=== PATIENT | female | born 1975 | race Caucasian/White ===

== ENCOUNTER → 2017-05-13 | Outpatient (CLI) | payer OTHER ==
[2017-05-13 07:36] LABS: BASO % 0.8 %; BASO ABS # 0.06 K/uL (0-0.2); COMPLETE YES; EOS % 1.9 %; HEMATOCRIT 38.4 % (37-47); IG% 0.4 %; LYMPH % 26.7 %; LYMPH ABS # 1.95 K/uL (1.2-3.4); MEAN CELL VOLUME 92.1 fL (80-100); MEAN CORPUSCULAR HEMOGLOBIN 31.2 pg (25-34); MEAN CORPUSCULAR HGB CONC 33.9 g/dl (32-36); MEAN PLATELET VOLUME 9.6 fL (7.4-10.4); MONO % 10.6 %; NEUT % 59.6 %; PLATELET COUNT 274 K/uL (130-400); RED BLOOD COUNT 4.17 M/uL (4.2-5.4); WHITE BLOOD COUNT 7.29 K/uL (4.8-10.8)
[2017-05-13 08:18] LABS: THYROID STIMULATING HORMONE 0.981 uIu/ml (0.300-4.500)
== END | disposition home or self-care (01) ==
LOC: C.LAB 06:51
PROVIDERS: ATTEND Optometrist
DX: Z00.00 Encounter for general adult medical examination without abnormal findings (principal); R79.89 Other specified abnormal findings of blood chemistry

== ENCOUNTER → 2017-10-27 | Outpatient (CLI) | payer OTHER ==
--- NOTE | 2017-10-28 15:08 | MAMMOGRAPHY REPORT ---
BILATERAL DIGITAL SCREENING MAMMOGRAM TOMOSYNTHESIS WITH CAD: 10/27/2017 CLINICAL HISTORY: Routine screening. Patient has no complaints. TECHNIQUE: Bilateral breast tomosynthesis in addition to standard 2D mammography was performed. Curre nt study was also evaluated with a Computer Aided Detection (CAD) system. COMPARISON: Comparison is made to exams dated: 08/06/2016 mammogram and 08/03/2015 mammogram - [facility]. BREAST COMPOSITION: The tissue of both breasts is heterogeneously dense, which may obscure small mas ses. FINDINGS: There is a possible area of architectural distortion in the 12:00 far posterior right [address], for which additional spot compression tomosynthesis views and possible ultrasound are recommended . Possible lobulated masses within each lateral and superior breast that could represent cysts, althoug h additional targeted ultrasound is recommended. There are diffuse bilateral benign-appearing punctate microcalcifications, most numerous in the right breast. No new suspicious clustered macrocalcifications are identified. IMPRESSION: ACR BI-RADS CATEGORY 0: INCOMPLETE EVALUATION: NEED ADDITIONAL IMAGING EVALUATION The possible area of architectural distortion in the 12:00 posterior right breast and possible bilate ral masses need additional imaging evaluation (30 minutes). The patient will be called to schedule an appointment. Approximately 10% of breast cancers are not detected with mammography. A negative mammographic report should not delay biopsy if a clinically suggestive mass is present. Jayshree Grove M.D. ay/:10/27/2017 15:46:54 Director Utilization Management: Concetta Shoemaker, [facility] letter sent: Addl Imaging 0 BI-RADS Code: ACR BI-RADS Category 0: Incomplete Evaluation: Need Additional Imaging Evaluation
== END | disposition home or self-care (01) ==
LOC: C.MAMM 14:50
PROVIDERS: ATTEND Internal Medicine
DX: Z12.31 Encounter for screening mammogram for malignant neoplasm of breast (principal)

== ENCOUNTER 2017-11-08 18:04 | Inpatient (IN) | payer OTHER ==
[~2017-11-08] VITALS: Ht 160 cm; Wt 75.3 kg
[2017-11-08] MEDS ORDERED: SODIUM CHLORIDE 0.9% 1000ML 1,000 ML IV STA ×3 (18:21→18:23)
[2017-11-08] MEDS ORDERED: KETOROLAC TROMETHAMINE 30 MG/ML VIAL IV STA ×2 (18:21→20:57)
[2017-11-08] MEDS ORDERED: ONDANSETRON INJ 2 MG/ML 2 ML VIAL IV STA (18:21)
[2017-11-08 18:46] LABS: HEMATOCRIT 36.3 % (37-47); HEMOGLOBIN 12.6 g/dL (12.0-16.0); MEAN CELL VOLUME 90.5 fL (80-100); MEAN CORPUSCULAR HEMOGLOBIN 31.4 pg (25-34); MEAN CORPUSCULAR HGB CONC 34.7 g/dl (32-36); MEAN PLATELET VOLUME 9.5 fL (7.4-10.4); PLATELET COUNT 232 K/uL (130-400); RED CELL DISTRIBUTION WIDTH CV 12.9 % (11.5-14.5); RED CELL DISTRIBUTION WIDTH SD 42.7 fL (36.4-46.3); WHITE BLOOD COUNT 15.25 K/uL (4.8-10.8)
[2017-11-08] MEDS ORDERED: [UNRECOGNIZED DRUG - OTHER] PO (18:56)
[2017-11-08] MEDS ORDERED: [UNRECOGNIZED DRUG - OTHER] PO (18:56)
[2017-11-08] MEDS ORDERED: [UNRECOGNIZED DRUG - OTHER] PO (18:56)
[2017-11-08] MEDS ORDERED: [UNRECOGNIZED DRUG - OTHER] PO (18:56)
[2017-11-08] MEDS ORDERED: [UNRECOGNIZED DRUG - OTHER] PO (18:56)
[2017-11-08] MEDS ORDERED: PHEN37.5 PO (18:56)
[2017-11-08] MEDS ORDERED: [UNRECOGNIZED DRUG - CODE] PO (18:56)
[2017-11-08] MEDS ORDERED: [UNRECOGNIZED DRUG - OTHER] PO ×2 (18:56)
--- NOTE | 2017-11-08 18:57 | DIAGNOSTIC IMAGING REPORT ---
CHEST ONE VIEW PORTABLE HISTORY: Generalized abdominal pain. COMPARISON: None. FINDINGS: The lungs are clear. Cardiac silhouette is normal in size. No pleural effusions. No pneumothorax. IMPRESSION: No acute process. Electronically signed by: Jason Cruz M.D. 11/08/2017 6:56 PM Dictated Date/Time: 11/08/2017 6:54 PM
[2017-11-08 18:58] LABS: ALBUMIN 3.7 gm/dl (3.4-5.0); CREATININE 0.85 mg/dl (0.60-1.20); POTASSIUM 3.5 mmol/L (3.5-5.1)
[2017-11-08 19:00] LABS: TOTAL PROTEIN 8.3 gm/dl (6.4-8.2)
--- NOTE | 2017-11-08 19:03 | EMERGENCY ROOM VISIT NOTE ---
History Report prepared by Maria Guadalupe: Na Orozco Under the Supervision of: Dr. Ryne Hong M.D. First contact with patient: 18:08 Chief Complaint: FLU LIKE SX Stated Complaint: AB PAIN History of Present Illness The patient is a 42 year old female who presents to the Emergency Room with complaints of constant abdominal pain beginning 1 week ago. The patient states that she has not felt well for a few weeks and 1 week ago she had nausea and vomiting at work after eating lunch. Since then she reports that she has been vomiting intermittently. She complains of RUQ pain that radiates into her back and hip, fever, chills, and shaking. The patient notes that she has been taking Tylenol and ibuprofen without relief of her symptoms. Pt denies LOC, headache, visual changes, neck pain, chest pain, cough, breathing difficulties, melena, hematochezia, urinary symptoms, numbness, weakness, lymphadenopathy, rash, leg pain, leg swelling, or other complaints. She rates her pain as a 6/10 in severity. Source of History: patient Onset: 1 week ago Position: abdomen (RUQ) Symptom Intensity: 6/10 Timing: constant Associated Symptoms: + fevers, + chills, + nausea, + vomiting, + back pain Review of Systems See HPI for pertinent positives and negatives. A total of ten systems were reviewed and were otherwise negative. Past Medical & Surgical Medical Problems: (1) No chronic problems Surgical Problems: (1) H/O laparoscopy Family History No pertinent family history stated. Social History Smoking Status: Former Smoker Marital Status: Housing Status: lives with family Occupation Status: employed Current/Historical Medications Scheduled Nutritional Supplements (Nutrament), 1 DOSE PO BID Phentermine Hcl (Phentermine Hcl), 37.5 MG PO DAILY [Adiprobiotic], 1 DOSE PO DAILY [Cellvit], 1 DOSE PO DAILY [Chrotrin], 1 DOSE PO DAILY [Enzonent], 1 DOSE PO DAILY [Lipotropic], 1 DOSE PO DAILY [Phenamine], 2 TAB PO QAM [Phenamine], 1 TAB PO QPM Allergies Coded Allergies: Oxytetracycline (Verified Allergy, Unknown, HAPPENED A CHILD-THINKS ITCHY RASH, 11/08/17) Polymyxin B (Verified Allergy, Unknown, HAPPENED A CHILD-THINKS ITCHY RASH, 11/08/17) Sulfa Antibiotics (Verified Allergy, Unknown, UNKNOWN, 11/08/17) Physical Exam Vital Signs Date Time Temp Pulse Resp B/P (MAP) Pulse Ox O2 Delivery O2 Flow Rate FiO2 11/08/17 22:30 106 11/08/17 21:15 38.6 113 18 113/72 93 Room Air 11/08/17 19:23 39.2 112 18 120/70 95 Room Air 11/08/17 18:39 115 11/08/17 18:06 38.5 126 18 132/79 99 Room Air Physical Exam GENERAL: Awake, alert, ill-appearing, in no distress HENT: Normocephalic, atraumatic. Oropharynx unremarkable. EYES: Normal conjunctiva. Sclera non-icteric. NECK: Supple. No nuchal rigidity. FROM. No JVD. RESPIRATORY: Clear to auscultation. CARDIAC: Tachycardic rate, normal rhythm. Extremities warm and well perfused. Pulses equal. ABDOMEN: Soft, non-distended. RUQ tenderness and guarding. No rebound. No masses. RECTAL: Deferred. MUSCULOSKELETAL: Chest examination reveals no tenderness. The back is symmetrical on inspection without obvious abnormality. There is no CVA tenderness to palpation. No joint edema. LOWER EXTREMITIES: Calves are equal size bilaterally and non-tender. No edema. No discoloration. NEURO: Normal sensorium. No sensory or motor deficits noted. SKIN: No rash or jaundice noted. Medical Decision & Procedures ER Provider Diagnostic Interpretation: Radiology results as stated below per my review and radiologist interpretation: CHEST ONE VIEW PORTABLE FINDINGS: The lungs are clear. Cardiac silhouette is normal in size. No pleural effusions. No pneumothorax. IMPRESSION: No acute process. Electronically signed by: Jason Cruz M.D. 11/08/2017 6:56 PM Dictated Date/Time: 11/08/2017 6:54 PM ABDOMINAL ULTRASOUND, RIGHT UPPER QUADRANT FINDINGS: Pancreas: The pancreatic tail is obscured by overlying bowel gas. The remaining portions of the pancreas are within normal limits. Liver: 15 cm in length. A 1.1 cm hyperechoic focus within the right hepatic lobe. This favors a hemangioma. Gallbladder: No gallbladder wall thickening. No gallstones. CBD: 5 mm. Right kidney: No hydronephrosis. IMPRESSION: 1. Normal gallbladder. No gallstones. 2. A 1.1 cm hyperechoic lesion within the right hepatic lobe which likely represents a hemangioma. Electronically signed by: Jason Cruz M.D. 11/08/2017 7:20 PM Dictated Date/Time: 11/08/2017 7:18 PM [address]OM[address] AND PELVIS CT WITH IV CONTRAST FINDINGS: Mild dependent changes seen within the lung bases posteriorly. No pneumoperitoneum. No pneumatosis. No fractures within the visualized osseous structures. A 1 cm hypodense lesion within the right hepatic lobe. This corresponds to the ultrasound focus and likely represents a hemangioma. The gallbladder, spleen, adrenal glands, pancreas, and left kidney are unremarkable. No hydronephrosis. Right perinephric fat stranding with multifocal areas of heterogeneous perfusion of the right kidney. There is also urothelial thickening within the right renal pelvis and right ureter. There is bladder wall thickening. No renal abscess identified at this time. Dominant focus of heterogeneous perfusion within the interpolar region of the right kidney measures 2.4 cm. The uterus and bilateral adnexa are unremarkable. Trace pelvic free fluid. A few colonic diverticula. No bowel wall thickening or obstruction. Normal appendix. IMPRESSION: 1. Right perinephric fat stranding with multifocal areas of heterogeneous perfusion of the right kidney. There is also urothelial thickening within the right renal pelvis and right ureter. Findings are consistent with a right-sided pyelonephritis. 2. There is also bladder wall thickening consistent with a cystitis. 3. No hydronephrosis. 4. Trace pelvic free fluid. This may be physiologic. Electronically signed by: Jason Cruz M.D. 11/08/2017 7:57 PM Dictated Date/Time: 11/08/2017 7:51 PM Laboratory Results 11/08/17 18:15 Red Blood Count 4.01, Mean Corpuscular Volume 90.5, Mean Corpuscular Hemoglobin 31.4, Mean Corpuscular Hemoglobin Concent 34.7, Mean Platelet Volume 9.5, Neutrophils (%) (Auto) 79.7, Lymphocytes (%) (Auto) 9.6, Monocytes (%) (Auto) 10.0, Eosinophils (%) (Auto) 0.2, Basophils (%) (Auto) 0.2, Neutrophils # (Auto ) 12.16, Lymphocytes # (Auto) 1.46, Monocytes # (Auto) 1.52, Eosinophils # (Auto ) 0.03, Basophils # (Auto) 0.03 11/08/17 18:15 Test 11/08/17 18:15 11/08/17 18:34 11/08/17 19:13 White Blood Count 15.25 K/uL (4.8-10.8) Red Blood Count 4.01 M/uL (4.2-5.4) Hemoglobin 12.6 g/dL (12.0-16.0) Hematocrit 36.3 % (37-47) Mean Corpuscular Volume 90.5 fL (80-100) Mean Corpuscular Hemoglobin 31.4 pg (25-34) Mean Corpuscular Hemoglobin Concent 34.7 g/dl (32-36) Platelet Count 232 K/uL (130-400) Mean Platelet Volume 9.5 fL (7.4-10.4) Neutrophils (%) (Auto) 79.7 % Lymphocytes (%) (Auto) 9.6 % Monocytes (%) (Auto) 10.0 % Eosinophils (%) (Auto) 0.2 % Basophils (%) (Auto) 0.2 % Neutrophils # (Auto) 12.16 K/uL (1.4-6.5) Lymphocytes # (Auto) 1.46 K/uL (1.2-3.4) Monocytes # (Auto) 1.52 K/uL (0.11-0.59) Eosinophils # (Auto) 0.03 K/uL (0-0.5) Basophils # (Auto) 0.03 K/uL (0-0.2) RDW Standard Deviation 42.7 fL (36.4-46.3) RDW Coefficient of Variation 12.9 % (11.5-14.5) Immature Granulocyte % (Auto) 0.3 % Immature Granulocyte # (Auto) 0.05 K/uL (0.00-0.02) Red Blood Cell Morphology Unremarkable Anion Gap 9.0 mmol/L (3-11) Est Creatinine Clear Calc Drug Dose 81.4 ml/min Estimated GFR () 96.6 Estimated GFR (Non- 83.3 BUN/Creatinine Ratio 13.2 (10-20) Calcium Level 9.0 mg/dl (8.5-10.1) Total Bilirubin 0.8 mg/dl (0.2-1) Direct Bilirubin 0.1 mg/dl (0-0.2) Aspartate Amino Transf (AST/SGOT) 39 U/L (15-37) Alanine Aminotransferase (ALT/SGPT) 56 U/L (12-78) Alkaline Phosphatase 69 U/L (45-117) Total Protein 8.3 gm/dl (6.4-8.2) Albumin 3.7 gm/dl (3.4-5.0) Lipase 128 U/L (73-393) Human Chorionic Gonadotropin, Qual NEG (NEG) Bedside Lactic Acid Venous 0.92 mmol/L (0.90-1.70) Urine Color YELLOW Urine Appearance CLOUDY (CLEAR) Urine pH 5.0 (4.5-7.5) Urine Specific Mchenry 1.023 (1.000-1.030) Urine Protein 1+ (NEG) Urine Glucose (UA) NEG (NEG) Urine Ketones 2+ (NEG) Urine Occult Blood 2+ (NEG) Urine Nitrite POS (NEG) Urine Bilirubin NEG (NEG) Urine Urobilinogen NEG (NEG) Urine Leukocyte Esterase SMALL (NEG) Urine WBC (Auto) >30 /hpf (0-5) Urine RBC (Auto) 5-10 /hpf (0-4) Urine Hyaline Casts (Auto) 1-5 /lpf (0-5) Urine Epithelial Cells (Auto) 10-20 /lpf (0-5) Urine Bacteria (Auto) 4+ (NEG) Urine Pathogenic Casts /lpf (0) Laboratory results reviewed by me Medications Administered Medications (Trade) Dose Ordered Sig/Luis Alberto Route Start Time Stop Time Status Last Admin Dose Admin Sodium Chloride 1,000 ml @ 125 mls/hr Q8H STAT IV 11/08/17 18:21 11/09/17 00:27 DC 11/08/17 18:32 125 MLS/HR Sodium Chloride 1,000 ml @ 999 mls/hr Q1H1M STAT IV 11/08/17 18:21 11/08/17 19:21 DC 11/08/17 18:21 999 MLS/HR Ondansetron HCl (Zofran Inj) 4 mg NOW STAT IV 11/08/17 18:21 11/08/17 18:24 DC 11/08/17 18:33 4 MG Ketorolac Tromethamine (Toradol Inj) 10 mg NOW STAT IV 1/28/18 18:21 11/08/17 18:24 DC 11/08/17 18:32 10 MG Sodium Chloride 1,000 ml @ 999 mls/hr Q1H1M STAT IV 11/08/17 18:23 11/08/17 19:23 DC 11/08/17 18:23 999 MLS/HR Ceftriaxone Sodium (Rocephin Inj) 1 gm NOW STAT IV 11/08/17 19:53 11/08/17 19:54 DC 11/08/17 19:59 1 GM Daptomycin 500 mg/ Sodium Chloride 60 ml @ 100 mls/hr NOW STAT IV 11/08/17 20:34 11/08/17 21:09 DC 11/08/17 20:34 100 MLS/HR Ketorolac Tromethamine (Toradol Inj) 10 mg NOW STAT IV 11/08/17 20:57 11/08/17 20:58 DC 11/08/17 21:11 10 MG Ondansetron HCl (Zofran Inj) 4 mg Q6H PRN IV 11/08/17 22:45 12/08/17 22:44 11/09/17 02:30 4 MG Morphine Sulfate (MoRPHine SULFATE INJ) 2 mg Q4H PRN IV 11/08/17 22:45 11/22/17 22:44 11/09/17 00:36 2 MG ED Course 1807: The patient was evaluated in room B12. A complete history and physical exam was performed. I performed a bedside ultrasound. 1820: Toradol Inj 10mg IV, Zofran Inj 4mg IV, Sodium Chloride 1000 ml @ 999 mls/ hr IV, Sodium Chloride 1000 ml @ 125 mls/hr IV. 1822: Sodium Chloride 1000 ml @ 999 mls/hr IV. 1921: I reevaluated and updated the patient. Her urine dip is concerning for infection and she is feeling better. 1952: Rocephin Inj 1gm IV. 1957: I reevaluated and updated the patient. 2033: Daptomycin 500mg/Sodium Chloride 60ml @ 100mls/hr IV. 2033: Discussed the patient's case with Dr. Gaviria. The patient will be evaluated for further treatment and disposition. 2056: Toradol Inj 10mg IV. 2104: Upon reexamination, the patient was doing well. I discussed the test results and treatment plan with her. The patient will be evaluated for further management. Medical Decision Prior records/ancillary studies reviewed. Triage Nursing notes reviewed and agree them. Additional history obtained from her . The patient's history was concerning for right upper quadrant abdominal pain. Differential diagnosis: Etiologies such as biliary pathology, UTI, appendicitis, diverticulitis, PUD, pancreatitis, obstruction, mesenteric ischemia, aortic pathology, infections, inflammatory bowel disease, renal colic, as well as others were entertained. Physical examination findings: As above. Guarding in the right upper quadrant. Febrile. ER treatment provided: IV Toradol 10 mg x2 IV normal saline bolus 2 L then 125 mL an hour. IV Zofran On reassessment the patient felt better. IV daptomycin IV Acetadote Diagnostics interpreted by me: The labs revealed a moderate leukocytosis on CBC of 15,000. Chemical panel unremarkable. LFTs rather unremarkable except for subtle elevation of AST. Urinalysis concerning for infection. Imaging studies: X-ray and ultrasound as above. CT scan concerning for pyelonephritis on the right. Consultation: A consultation was placed with the hospitalist,Dr. Fahad Gaviria. The case was discussed and diagnostics were reviewed. The patient was evaluated in the ER for further treatment. After discussion there was concerns about the patient taking a significant amount of Tylenol, slightly more than the recommended maximum over the last 3-4 days. We did consult with poison control and Acetadote was recommended. Medication Reconcilliation Current Medication List: was personally reviewed by me Blood Pressure Screening Patient's blood pressure: Elevated blood pressure Blood pressure disposition: Elevated BP felt to be situational Consults Time Called: 2029 Consulting Physician: Dr. Gaviria - [facility] Returned Call: 2033 Discussed the patient's case with Dr. Gaviria. The patient will be evaluated for further treatment and disposition. Impression Primary Impression: Pyelonephritis Scribe Attestation The scribe's documentation has been prepared under my direction and personally reviewed by me in its entirety. I confirm that the note above accurately reflects all work, treatment, procedures, and medical decision making performed by me. Departure Information Dispostion Being Evaluated By Hospitalist Referrals Nixon Caceres M.D. (PCP) Patient Instructions My [facility]
[2017-11-08 19:06] LABS: BASO % 0.2 %; BASO ABS # 0.03 K/uL (0-0.2); EOS % 0.2 %; EOS ABS # 0.03 K/uL (0-0.5); IG# 0.05 K/uL (0.00-0.02); LYMPH % 9.6 %; LYMPH ABS # 1.46 K/uL (1.2-3.4); MONO ABS # 1.52 K/uL (0.11-0.59); NEUT % 79.7 %; NEUT ABS # 12.16 K/uL (1.4-6.5)
--- NOTE | 2017-11-08 19:21 | DIAGNOSTIC IMAGING REPORT ---
ABDOMINAL ULTRASOUND, RIGHT UPPER QUADRANT HISTORY: fever, right upper quadrant pain, vomiting. COMPARISON: None. FINDINGS: Pancreas: The pancreatic tail is obscured by overlying bowel gas. The remaining portions of the pancreas are within normal limits. Liver: 15 cm in length. A 1.1 cm hyperechoic focus within the right hepatic lobe. This favors a hemangioma. Gallbladder: No gallbladder wall thickening. No gallstones. CBD: 5 mm. Right kidney: No hydronephrosis. IMPRESSION: 1. Normal gallbladder. No gallstones. 2. A 1.1 cm hyperechoic lesion within the right hepatic lobe which likely represents a hemangioma. Electronically signed by: Jason Cruz M.D. 11/08/2017 7:20 PM Dictated Date/Time: 11/08/2017 7:18 PM
[2017-11-08] MEDS ORDERED: OPTIRAY 320 IV PRN (19:45)
[2017-11-08] MEDS ORDERED: CEFTRIAXONE SOD INJ 1 GM ADDVIAL IV STA (19:53)
--- NOTE | 2017-11-08 19:58 | DIAGNOSTIC IMAGING REPORT ---
ABDOMEN AND PELVIS CT WITH IV CONTRAST CT DOSE: 459.46 mGy.cm HISTORY: Right upper quadrant abdominal pain. Fever. Abnormal urinalysis. TECHNIQUE: Multiaxial CT images of the abdomen and pelvis were performed following the use of intravenous contrast. A dose lowering technique was utilized adhering to the principles of ALARA. COMPARISON STUDY: Abdominal ultrasound 11/08/2017. FINDINGS: Mild dependent changes seen within the lung bases posteriorly. No pneumoperitoneum. No pneumatosis. No fractures within the visualized osseous structures. A 1 cm hypodense lesion within the right hepatic lobe. This corresponds to the ultrasound focus and likely represents a hemangioma. The gallbladder, spleen, adrenal glands, pancreas, and left kidney are unremarkable. No hydronephrosis. Right perinephric fat stranding with multifocal areas of heterogeneous perfusion of the right kidney. There is also urothelial thickening within the right renal pelvis and right ureter. There is bladder wall thickening. No renal abscess identified at this time. Dominant focus of heterogeneous perfusion within the interpolar region of the right kidney measures 2.4 cm. The uterus and bilateral adnexa are unremarkable. Trace pelvic free fluid. A few colonic diverticula. No bowel wall thickening or obstruction. Normal appendix. IMPRESSION: 1. Right perinephric fat stranding with multifocal areas of heterogeneous perfusion of the right kidney. There is also urothelial thickening within the right renal pelvis and right ureter. Findings are consistent with a right-sided pyelonephritis. 2. There is also bladder wall thickening consistent with a cystitis. 3. No hydronephrosis. 4. Trace pelvic free fluid. This may be physiologic. Electronically signed by: Jason Cruz M.D. 11/08/2017 7:57 PM Dictated Date/Time: 11/08/2017 7:51 PM
[2017-11-08] MEDS ORDERED: DAPTOmycin IV 500 MG in SODIUM CHLORIDE 0.9% 50ML 50 ML IV STA (20:34)
--- NOTE | 2017-11-08 22:30 | History and Physical ---
History & Physical Date & Time of Service: Nov 08, 2017 at 22:29 Chief Complaint: Ab Pain Primary Care Physician: Nixon Caceres M.D. History of Present Illness Source: patient, family, hospital records 42 year old female with no past medical history presents to ED with fever, RUQ, R flank pain. Symptoms commenced 4 days ago. RUQ pain described as sharp with radiation around the side to the back and down the right flank. Described as a burning and aching. Pain improved when laying on it and worsened immediately after PO intake and pressure felt when voiding. Otherwise denies UTI symptoms. Associated with fevers and chills, with Tmax 101.5 today at home. Had an episode of emesis last week, but none since. Has persistent nausea. Denies changes in bowel habits. Pain managed with Tylenol 1g q4h - patient was taking 6g daily for last 4 days, and Motrin 600mg q6h respectively. However, irrespective of this, pain worsened and became more persistent today. Previous hx of pyelo 25 years ago during . But no UTI history. She otherwise denies headaches, CP, palpitations, dyspnea, lower extremity swelling or rashes. ROS is unremarkable except as noted above. In ED patient was given IVF, ceftriaxone and daptomycin, Zofran for nausea and Toradol for pain. N-acetylcysteine was started for Tylenol OD particularly in view of abdominal symptoms. Past Medical/Surgical History Medical Problems: None Surgical Problems: H/O exploratory laparoscopy for infertility Family History Noncontributory Social History Smoking Status: Former Smoker (Quit 10 years ago, 15 pack year history.) Smokeless Tobacco Use: No Alcohol Use: occasionally Drug Use: none Marital Status: Occupational Status: employed Immunizations History of Influenza Vaccine: No History of Tetanus Vaccine?: No History of Pneumococcal: No History of Hepatitis B Vaccine: No Multi-Drug Resistant Organisms History of MDRO: No Allergies Coded Allergies: Oxytetracycline (Verified Allergy, Unknown, HAPPENED A CHILD-THINKS ITCHY RASH, 11/08/17) Polymyxin B (Verified Allergy, Unknown, HAPPENED A CHILD-THINKS ITCHY RASH, 11/08/17) Sulfa Antibiotics (Verified Allergy, Unknown, UNKNOWN, 11/08/17) Home Medications Scheduled Nutritional Supplements (Nutrament), 1 DOSE PO BID Phentermine Hcl (Phentermine Hcl), 37.5 MG PO DAILY [Adiprobiotic], 1 DOSE PO DAILY [Cellvit], 1 DOSE PO DAILY [Chrotrin], 1 DOSE PO DAILY [Enzonent], 1 DOSE PO DAILY [Lipotropic], 1 DOSE PO DAILY [Phenamine], 2 TAB PO QAM [Phenamine], 1 TAB PO QPM Physical Exam Vital Signs Date Time Temp Pulse Resp B/P (MAP) Pulse Ox O2 Delivery O2 Flow Rate FiO2 11/08/17 21:15 38.6 113 18 113/72 93 Room Air 11/08/17 19:23 39.2 112 18 120/70 95 Room Air 11/08/17 18:39 115 11/08/17 18:06 38.5 126 18 132/79 99 Room Air General Appearance: WD/WN, + mild distress Head: normocephalic, atraumatic Eyes: normal inspection ENT: hearing grossly normal, pharynx normal Neck: supple, no adenopathy Respiratory/Chest: normal breath sounds, no respiratory distress, no accessory muscle use Cardiovascular: regular rate, rhythm, no edema, normal peripheral pulses Abdomen/GI: normal bowel sounds, soft, + tenderness (RUQ. Kilpatrick's negative.) Back: normal inspection, + right CVA tenderness Neurologic/Psych: alert, normal mood/affect, oriented x 3 Skin: normal color, warm/dry, no rash Diagnostics Laboratory Results Results Past 24 Hours Test 11/08/17 18:15 11/08/17 18:34 11/08/17 19:13 Range/Units White Blood Count 15.25 4.8-10.8 K/uL Red Blood Count 4.01 4.2-5.4 M/uL Hemoglobin 12.6 12.0-16.0 g/dL Hematocrit 36.3 37-47 % Mean Corpuscular Volume 90.5 80-100 fL Mean Corpuscular Hemoglobin 31.4 25-34 pg Mean Corpuscular Hemoglobin Concent 34.7 32-36 g/dl Platelet Count 232 130-400 K/uL Mean Platelet Volume 9.5 7.4-10.4 fL Neutrophils (%) (Auto) 79.7 % Lymphocytes (%) (Auto) 9.6 % Monocytes (%) (Auto) 10.0 % Eosinophils (%) (Auto) 0.2 % Basophils (%) (Auto) 0.2 % Neutrophils # (Auto) 12.16 1.4-6.5 K/uL Lymphocytes # (Auto) 1.46 1.2-3.4 K/uL Monocytes # (Auto) 1.52 0.11-0.59 K/uL Eosinophils # (Auto) 0.03 0-0.5 K/uL Basophils # (Auto) 0.03 0-0.2 K/uL RDW Standard Deviation 42.7 36.4-46.3 fL RDW Coefficient of Variation 12.9 11.5-14.5 % Immature Granulocyte % (Auto) 0.3 % Immature Granulocyte # (Auto) 0.05 0.00-0.02 K/uL Red Blood Cell Morphology Unremarkable Sodium Level 136 136-145 mmol/L Potassium Level 3.5 3.5-5.1 mmol/L Chloride Level 103 98-107 mmol/L Carbon Dioxide Level 24 21-32 mmol/L Anion Gap 9.0 3-11 mmol/L Blood Urea Nitrogen 11 7-18 mg/dl Creatinine 0.85 0.60-1.20 mg/dl Est Creatinine Clear Calc Drug Dose 81.4 ml/min Estimated GFR () 96.6 Estimated GFR (Non- 83.3 BUN/Creatinine Ratio 13.2 10-20 Random Glucose 96 70-99 mg/dl Calcium Level 9.0 8.5-10.1 mg/dl Total Bilirubin 0.8 0.2-1 mg/dl Direct Bilirubin 0.1 0-0.2 mg/dl Aspartate Amino Transf (AST/SGOT) 39 15-37 U/L Alanine Aminotransferase (ALT/SGPT) 56 12-78 U/L Alkaline Phosphatase 69 45-117 U/L Total Protein 8.3 6.4-8.2 gm/dl Albumin 3.7 3.4-5.0 gm/dl Lipase 128 73-393 U/L Human Chorionic Gonadotropin, Qual NEG NEG Bedside Lactic Acid Venous 0.92 0.90-1.70 mmol/L Urine Color YELLOW Urine Appearance CLOUDY CLEAR Urine pH 5.0 4.5-7.5 Urine Specific [place] 1.023 1.000-1.030 Urine Protein 1+ NEG Urine Glucose (UA) NEG NEG Urine Ketones 2+ NEG Urine Occult Blood 2+ NEG Urine Nitrite POS NEG Urine Bilirubin NEG NEG Urine Urobilinogen NEG NEG Urine Leukocyte Esterase SMALL NEG Urine WBC (Auto) >30 0-5 /hpf Urine RBC (Auto) 5-10 0-4 /hpf Urine Hyaline Casts (Auto) 1-5 0-5 /lpf Urine Epithelial Cells (Auto) 10-20 0-5 /lpf Urine Bacteria (Auto) 4+ NEG Urine Pathogenic Casts 0 /lpf Microbiology Results 11/08/17 Blood Culture, Received Pending 11/08/17 Blood Culture, Received Pending 11/08/17 Urine Culture, Received Pending Diagnostic Radiology CHEST ONE VIEW PORTABLE HISTORY: Generalized abdominal pain. COMPARISON: None. FINDINGS: The lungs are clear. Cardiac silhouette is normal in size. No pleural effusions. No pneumothorax. IMPRESSION: No acute process. ABDOMINAL ULTRASOUND, RIGHT UPPER QUADRANT HISTORY: fever, right upper quadrant pain, vomiting. COMPARISON: None. FINDINGS: Pancreas: The pancreatic tail is obscured by overlying bowel gas. The remaining portions of the pancreas are within normal limits. Liver: 15 cm in length. A 1.1 cm hyperechoic focus within the right hepatic lobe. This favors a hemangioma. Gallbladder: No gallbladder wall thickening. No gallstones. CBD: 5 mm. Right kidney: No hydronephrosis. IMPRESSION: 1. Normal gallbladder. No gallstones. 2. A 1.1 cm hyperechoic lesion within the right hepatic lobe which likely represents a hemangioma. ABDOMEN AND PELVIS CT WITH IV CONTRAST CT DOSE: 459.46 mGy.cm HISTORY: Right upper quadrant abdominal pain. Fever. Abnormal urinalysis. TECHNIQUE: Multiaxial CT images of the abdomen and pelvis were performed following the use of intravenous contrast. A dose lowering technique was utilized adhering to the principles of ALARA. COMPARISON STUDY: Abdominal ultrasound 11/08/2017. FINDINGS: Mild dependent changes seen within the lung bases posteriorly. No pneumoperitoneum. No pneumatosis. No fractures within the visualized osseous structures. A 1 cm hypodense lesion within the right hepatic lobe. This corresponds to the ultrasound focus and likely represents a hemangioma. The gallbladder, spleen, adrenal glands, pancreas, and left kidney are unremarkable. No hydronephrosis. Right perinephric fat stranding with multifocal areas of heterogeneous perfusion of the right kidney. There is also urothelial thickening within the right renal pelvis and right ureter. There is bladder wall thickening. No renal abscess identified at this time. Dominant focus of heterogeneous perfusion within the interpolar region of the right kidney measures 2.4 cm. The uterus and bilateral adnexa are unremarkable. Trace pelvic free fluid. A few colonic diverticula. No bowel wall thickening or obstruction. Normal appendix. IMPRESSION: 1. Right perinephric fat stranding with multifocal areas of heterogeneous perfusion of the right kidney. There is also urothelial thickening within the right renal pelvis and right ureter. Findings are consistent with a right-sided pyelonephritis. 2. There is also bladder wall thickening consistent with a cystitis. 3. No hydronephrosis. 4. Trace pelvic free fluid. This may be physiologic. Impression Assessment and Plan 42 year old female with no past medical history presents to ED with fever, RUQ, R flank pain, admitted for pyelonephritis Sepsis secondary to pyelonephritis - IV abx: vancomycin and imipenem-cilastatin. - IVF NSS @ 125cc/hr - Zofran PRN nausea - Tramadol and morphine PRN pain - avoid Tylenol and NSAID. - If pain symptoms do not improve with management for pyelo, would consider further GB assessment. - Trend CBC and BMP Tylenol overdose - took ~2400g in 4 days. Poison control recommends management given abdo symptoms - Ordered Tylenol level - N-acetylcysteine as per protocol - Trend LFTs VTE PPx - SCD ADDENDUM: Vancomycin infusion at 200cc/hr - 1 hour into infusion, patient developed swelling and redness on face, questionable bumps/welts on chin, severe bilateral ear swelling. Vitals WNL some hypotension, not worse than at admission. No signs of anaphylaxis on P/E. IV Benadryl prescribed and vancomycin switched to daptomycin. Attending addendum: I have physically seen this patient, have supervised the medical residents activities, and agree with the H&P unless as otherwise noted. Assessment and Plan: Sepsis Secondary to UTI/pyelonephritis-- Patient had been placed on vancomycin IV and Primaxin IV however, developed what appeared to be a true allergic reaction as opposed to red man syndrome to vancomycin. The vancomycin was changed to daptomycin IV. Follow urine culture and sensitivity NSS at 125 ML's per hour Inadvertent acetaminophen overdose-- Acetaminophen level ordered Conversation with toxicology center recommended empiric treatment with Acetadote Level of Care Med/Surg Advanced Directives Existing Advance Directive: No Existing Living Will: No Existing Power of Open Soaper Tender: No Existing Health Care Proxy: No Resuscitation Status FULL RESUSCITATION VTE Prophylaxis VTE Risk Assessment Done? Y/N: Yes Risk Level: Moderate Given or contraindicated: SCD's Resident Tracking Resident Involvement: Resident Care Provided Care Provided: Adult Hospital Medicine
[2017-11-08] MEDS ORDERED: POLYETHYLENE (MIRALAX) 17 GM PACK PO PRN (22:45)
[2017-11-08] MEDS ORDERED: VANCOMYCIN CONSULT ACTIVE PRN (22:45)
[2017-11-08] MEDS ORDERED: ENOXAPARIN 40 MG/0.4 ML SYR SC SCH (22:45)
[2017-11-08] MEDS ORDERED: ALUMINUM/MAGNESIUM/SIMETH (MAALOX MAX) 30 ML UDC PO PRN (22:45)
[2017-11-08] MEDS ORDERED: MoRPHine SULFATE 2 MG/ML CARP IV PRN (22:45)
[2017-11-08] MEDS ORDERED: ACETAMINOPHEN 325 MG TAB PO PRN (22:45)
[2017-11-08] MEDS ORDERED: MAGNESIUM HYDROXIDE SUSP 30 ML UDC PO PRN (22:45)
[2017-11-08] MEDS ORDERED: NITROGLYCERIN 0.4 MG SL PER TAB CHARGE SL PRN (22:45)
[2017-11-08] MEDS ORDERED: ACETYLCYSTEINE IV 21 HOUR REGIMEN IV STA (23:02)
[2017-11-08] MEDS ORDERED: DEXTROSE 5% IV SCH (23:15)
[2017-11-08] MEDS ORDERED: ACETYLCYSTEINE IV SCH (23:15)
[2017-11-09] VITALS (13 sets, daily range): BP systolic 93–118; BP diastolic 49–85; PULSE 87–117; TEMP 36.2–39.1; O2SAT 89–100; Ht 160 cm; Wt 75.3 kg
[2017-11-09] MEDS: SODIUM CHLORIDE 0.9% 1000ML 1,000 ML IV SCH ×4 (00:29→23:55)
[2017-11-09] MEDS ORDERED: ACETYLCYSTEINE IV SCH ×3 (00:30→19:30)
[2017-11-09] MEDS ORDERED: DEXTROSE 5% IV SCH ×3 (00:30→19:30)
[2017-11-09] MEDS: IMIPENEM-CILASTATIN 500 MG in DEXTROSE 5% 100ML 100 ML IV SCH ×2 (01:18→06:00)
[2017-11-09] MEDS ORDERED: VANCOMYCIN INJ 1,750 MG in SODIUM CHLORIDE 0.9% 500ML 500 ML IV SCH (02:00)
[2017-11-09] MEDS: ONDANSETRON INJ 2 MG/ML 2 ML VIAL IV PRN (02:30)
[2017-11-09] MEDS ORDERED: DiphenhydrAMINE INJ 50 MG in SYRINGE 0 ML IV SCH (04:45)
[2017-11-09] MEDS ORDERED: DiphenhydrAMINE HCL 50 MG/ML VIAL ONE (04:54)
[2017-11-09] MEDS ORDERED: DiphenhydrAMINE HCL 50 MG/ML VIAL IV PRN (05:30)
[2017-11-09 06:50] LABS: BASO % 0.2 %; BASO ABS # 0.02 K/uL (0-0.2); HEMOGLOBIN 10.3 g/dL (12.0-16.0); IG# 0.02 K/uL (0.00-0.02); LYMPH % 10.3 %; LYMPH ABS # 1.09 K/uL (1.2-3.4); MEAN CELL VOLUME 90.9 fL (80-100); MEAN CORPUSCULAR HEMOGLOBIN 31.2 pg (25-34); MEAN CORPUSCULAR HGB CONC 34.3 g/dl (32-36); MEAN PLATELET VOLUME 9.8 fL (7.4-10.4); MONO % 12.4 %; MONO ABS # 1.31 K/uL (0.11-0.59); NEUT % 76.9 %; NEUT ABS # 8.16 K/uL (1.4-6.5); PLATELET COUNT 178 K/uL (130-400); RED CELL DISTRIBUTION WIDTH SD 43.3 fL (36.4-46.3)
[2017-11-09 07:25] LABS: ALBUMIN 2.4 gm/dl (3.4-5.0); CALCIUM 7.4 mg/dl (8.5-10.1); CREATININE 0.67 mg/dl (0.60-1.20); POTASSIUM 3.4 mmol/L (3.5-5.1)
[2017-11-09 07:29] LABS: TOTAL PROTEIN 5.7 gm/dl (6.4-8.2)
--- NOTE | 2017-11-09 07:39 | Family Medicine Progress Note ---
Progress Note Date of Service Nov 09, 2017. Subjective Pt evaluation today including: conversation w/ patient, physical exam, chart review, lab review, review of studies Patient is pain, report right flank, denies dysuria or other urinary sx. Pt does endorse nausea, denies vomiting. Continues to have fevers and chills. Constitutional: + fever, + chills Respiratory: No cough, No sputum, No shortness of breath Cardiovascular: No chest pain, No palpitations Abdomen: + pain, + nausea, No vomiting Musculoskeletal: + problem reported (back pain ) Female : No dysuria, No urinary frequency, No hematuria Medications Current Inpatient Medications Medications (Trade) Dose Ordered Sig/Luis Alberto Route Start Time Stop Time Status Last Admin Dose Admin Ioversol (Optiray 320) 100 ml UD PRN IV 11/08/17 19:45 11/12/17 19:44 Sodium Chloride 1,000 ml @ 125 mls/hr Q8H IV 11/08/17 23:59 12/08/17 23:58 11/09/17 07:55 125 MLS/HR Al Hydrox/Mg Hydrox/Simethicone (Maalox Max Susp) 15 ml Q4H PRN PO 11/08/17 22:45 12/08/17 22:44 Magnesium Hydroxide (Milk Of Magnesia Susp) 30 ml Q12H PRN PO 11/08/17 22:45 12/08/17 22:44 Ondansetron HCl (Zofran Inj) 4 mg Q6H PRN IV 11/08/17 22:45 12/08/17 22:44 11/09/17 02:30 4 MG Nitroglycerin (Nitrostat Tab) 0.4 mg UD PRN SL 11/08/17 22:45 12/08/17 22:44 Polyethylene (Miralax Powder Packet) 17 gm DAILY PRN PO 11/08/17 22:45 12/08/17 22:44 Morphine Sulfate (MoRPHine SULFATE INJ) 2 mg Q4H PRN IV 11/08/17 22:45 11/22/17 22:44 11/09/17 00:36 2 MG Heparin Sodium (Porcine) (Heparin Sq 5000 Unit/0.5ml) 5,000 unit Q12 SQ 11/09/17 09:00 12/09/17 08:59 1/29/18 08:58 5,000 UNIT Acetylcysteine 7400 mg/Dextrose 1,037 ml @ 62.5 mls/hr UD IV 11/09/17 04:30 11/09/17 21:06 11/09/17 06:00 62.5 MLS/HR Pantoprazole Sodium 40 mg/ Syringe 10 ml @ 5 mls/min DAILY@11 IV 11/09/17 11:00 11/09/17 15:00 11/09/17 11:24 5 MLS/MIN Diphenhydramine HCl (Benadryl Inj) 50 mg Q4H PRN IV 11/09/17 05:30 12/09/17 05:29 Tramadol HCl (Ultram Tab) 50 mg Q4H PRN PO 11/09/17 05:30 12/09/17 05:29 11/09/17 08:54 50 MG Ceftriaxone Sodium 2000 mg/ Dextrose 70 ml @ 140 mls/hr DAILY@1200 IV 11/09/17 12:00 11/19/17 11:59 11/09/17 11:24 140 MLS/HR Pantoprazole Sodium (Protonix Tab) 40 mg QAM PO 11/10/17 09:00 11/12/17 23:59 Objective Vital Signs Date Time Temp Pulse Resp B/P (MAP) Pulse Ox O2 Delivery O2 Flow Rate FiO2 11/09/17 12:00 Room Air 11/09/17 11:19 38.0 104 18 105/67 (80) 90 Room Air 11/09/17 08:00 Room Air 11/09/17 07:47 39.0 11/09/17 07:19 38.2 114 18 100/85 (90) 91 Room Air 11/09/17 04:05 94 Room Air 11/09/17 04:04 37.6 114 20 98/49 (65) 94 Room Air 11/09/17 00:05 37.3 107 20 108/71 94 Room Air 11/08/17 23:00 102 20 118/79 94 Room Air 11/08/17 22:30 106 11/08/17 21:15 38.6 113 18 113/72 93 Room Air 11/08/17 19:23 39.2 112 18 120/70 95 Room Air 11/08/17 18:39 115 11/08/17 18:06 38.5 126 18 132/79 99 Room Air Physical Exam General Appearance: WD/WN, + mild distress Respiratory/Chest: chest non-tender, lungs clear, normal breath sounds Cardiovascular: regular rate, rhythm, no murmur Abdomen: normal bowel sounds, non tender, soft, + pertinent finding (right side CVA tenderness) Neurologic/Psychiatric: alert, normal mood/affect, oriented x 3 Skin: normal color, warm/dry, no rash Laboratory Results 11/09/17 06:14 Red Blood Count 3.30, Mean Corpuscular Volume 90.9, Mean Corpuscular Hemoglobin 31.2, Mean Corpuscular Hemoglobin Concent 34.3, Mean Platelet Volume 9.8, Neutrophils (%) (Auto) 76.9, Lymphocytes (%) (Auto) 10.3, Monocytes (%) (Auto) 12.4, Eosinophils (%) (Auto) 0.0, Basophils (%) (Auto) 0.2, Neutrophils # (Auto ) 8.16, Lymphocytes # (Auto) 1.09, Monocytes # (Auto) 1.31, Eosinophils # (Auto ) 0.00, Basophils # (Auto) 0.02 11/09/17 06:14 Test 11/08/17 18:15 11/08/17 18:34 11/08/17 19:13 11/08/17 23:23 Red Blood Cell Morphology Unremarkable Direct Bilirubin 0.1 mg/dl (0-0.2) Lipase 128 U/L (73-393) Human Chorionic Gonadotropin, Qual NEG (NEG) Bedside Lactic Acid Venous 0.92 mmol/L (0.90-1.70) Urine Color YELLOW Urine Appearance CLOUDY (CLEAR) Urine pH 5.0 (4.5-7.5) Urine Specific [place] 1.023 (1.000-1.030) Urine Protein 1+ (NEG) Urine Glucose (UA) NEG (NEG) Urine Ketones 2+ (NEG) Urine Occult Blood 2+ (NEG) Urine Nitrite POS (NEG) Urine Bilirubin NEG (NEG) Urine Urobilinogen NEG (NEG) Urine Leukocyte Esterase SMALL (NEG) Urine WBC (Auto) >30 /hpf (0-5) Urine RBC (Auto) 5-10 /hpf (0-4) Urine Hyaline Casts (Auto) 1-5 /lpf (0-5) Urine Epithelial Cells (Auto) 10-20 /lpf (0-5) Urine Bacteria (Auto) 4+ (NEG) Urine Pathogenic Casts /lpf (0) Acetaminophen Level 5 ug/ml (10-30) Test 11/09/17 06:14 White Blood Count 10.60 K/uL (4.8-10.8) Red Blood Count 3.30 M/uL (4.2-5.4) Hemoglobin 10.3 g/dL (12.0-16.0) Hematocrit 30.0 % (37-47) Mean Corpuscular Volume 90.9 fL (80-100) Mean Corpuscular Hemoglobin 31.2 pg (25-34) Mean Corpuscular Hemoglobin Concent 34.3 g/dl (32-36) Platelet Count 178 K/uL (130-400) Mean Platelet Volume 9.8 fL (7.4-10.4) Neutrophils (%) (Auto) 76.9 % Lymphocytes (%) (Auto) 10.3 % Monocytes (%) (Auto) 12.4 % Eosinophils (%) (Auto) 0.0 % Basophils (%) (Auto) 0.2 % Neutrophils # (Auto) 8.16 K/uL (1.4-6.5) Lymphocytes # (Auto) 1.09 K/uL (1.2-3.4) Monocytes # (Auto) 1.31 K/uL (0.11-0.59) Eosinophils # (Auto) 0.00 K/uL (0-0.5) Basophils # (Auto) 0.02 K/uL (0-0.2) RDW Standard Deviation 43.3 fL (36.4-46.3) RDW Coefficient of Variation 13.0 % (11.5-14.5) Immature Granulocyte % (Auto) 0.2 % Immature Granulocyte # (Auto) 0.02 K/uL (0.00-0.02) Prothrombin Time 10.5 SECONDS (9.0-12.0) Prothromb Time International Ratio 1.0 (0.9-1.1) Anion Gap 9.0 mmol/L (3-11) Est Creatinine Clear Calc Drug Dose 103.2 ml/min Estimated GFR () 123.9 Estimated GFR (Non- 106.9 BUN/Creatinine Ratio 12.5 (10-20) Calcium Level 7.4 mg/dl (8.5-10.1) Total Bilirubin 0.5 mg/dl (0.2-1) Aspartate Amino Transf (AST/SGOT) 25 U/L (15-37) Alanine Aminotransferase (ALT/SGPT) 45 U/L (12-78) Alkaline Phosphatase 49 U/L (45-117) Total Protein 5.7 gm/dl (6.4-8.2) Albumin 2.4 gm/dl (3.4-5.0) Globulin 3.3 gm/dl (2.5-4.0) Albumin/Globulin Ratio 0.7 (0.9-2) Assessment and Plan 42 year old female with no past medical history presents to ED with fever, RUQ, R flank pain, admitted for pyelonephritis 11/09 Patients fever, flank pain persist. Patient has not received Tylenol due to concern for hepatoxicity (pt reports take 6 grams yesterday). Her AST was mildly elevated. Gave the patient one dose of Toradol. Continue IVF and IV abx; 2 grams Rocephin. Sepsis secondary to pyelonephritis - IV abx: 2 grams Rocephin - IVF NSS @ 125cc/hr - Zofran PRN nausea - Tramadol and morphine PRN pain - Toradol once Tylenol overdose - Differing history regarding tylenol intake; patient reports taking 6 grams in one day. AST mildly elevated - Ordered Tylenol level--low - Liver enzymes improved - Will continue to trend LFTs - Dc'ed n-acetylcysteine - Hold Tylenol for now VTE PPx - SCD History Resident Physician Supervision Note: I was present with Dr. Navarro during the history and exam. I discussed the case with the resident and agree with the findings and plan as documented in the note. Any exceptions or clarifications are listed here. Pt reports improving right flank pain after abx, now a dull ache compared to worst pain ever previously. Still feeling febrile/flush but has also subsided in the last few hours. General Appearance: WD/WN, no apparent distress Respiratory: chest non-tender, lungs clear, normal breath sounds, no respiratory distress Cardiovascular: normal peripheral pulses, regular rate, rhythm, no murmur Gastrointestinal: normal bowel sounds, non tender, soft, no organomegaly, other (neg TTP w/ CVA bellotment) Assessment/Plan 42 y/o female h/o pyelonephritis in presents w/ right sided pyelonephritis and sepsis Pyelonephritis with sepsis - narrow abx to rocephin, continue IV hydration and sx management. Trend BMP, CBC Acetaminophen overdose - poison control aware - NAC completed, trend CMP, update poison control Hypokalemia - mild, monitor BMP, replete as necessary VTE PPX - SCDs
[2017-11-09] MEDS: TRAMADOL HCL 50 MG TAB PO PRN ×3 (08:54→21:44)
[2017-11-09] MEDS: HEPARIN SOD 5000 UNIT/0.5 ML CARP SQ SCH ×2 (08:58→21:01)
[2017-11-09] MEDS ORDERED: VANCOMYCIN INJ 1,000 MG in SODIUM CHLORIDE 0.9% 250ML 250 ML IV SCH (09:00)
[2017-11-09] MEDS ORDERED: IBUPROFEN 200 MG TAB PO ONE (09:45)
[2017-11-09] MEDS ORDERED: PANTOprazole INJ 40 MG in SYRINGE 0 ML IV SCH (11:00)
[2017-11-09] MEDS: CEFTRIAXONE SOD INJ 2000 MG in DEXTROSE 5% 50ML IV SCH (11:24)
[2017-11-09 18:40] LABS: ALBUMIN 2.3 gm/dl (3.4-5.0); ALKALINE PHOSPHATASE 51 U/L (45-117); ALT/SGPT 57 U/L (12-78); AST/SGOT 53 U/L (15-37); TOTAL PROTEIN 5.5 gm/dl (6.4-8.2)
[2017-11-09] MEDS ORDERED: ACETYLCYSTEINE IV 21 HOUR REGIMEN IV STA (19:03)
[2017-11-09] MEDS ORDERED: DAPTOmycin IV 450 MG in SYRINGE 0 ML IV SCH (20:30)
[2017-11-09] MEDS ORDERED: SODIUM CHLORIDE 0.9% IV SCH (20:30)
[2017-11-09] MEDS ORDERED: DAPTOMYCIN IV SCH (20:30)
--- NOTE | 2017-11-09 21:36 | Medical Student: [facility] ---
Med Student Progress Note Date of Service Nov 09, 2017. Subjective Pt evaluation today including: conversation w/ patient, physical exam Pain: "all over" Voiding: no voiding problems Ms. Hurtado is a 42-year-old female with a history of pyelonephritis in who is admitted for pyelonephritis and acetaminophen toxicity. Today she states she feels "terrible" due to fever and pain "all over." She also endorses nausea and chills. She denies dysuria and has not had a bowel movement yet. She is currently very fatigued and offers no more history. Review of Systems Notes: see hpi Objective Vital Signs Date Time Temp Pulse Resp B/P (MAP) Pulse Ox O2 Delivery O2 Flow Rate FiO2 11/09/17 19:27 37.1 96 18 105/71 (82) 95 Room Air 11/09/17 16:00 94 Room Air 11/09/17 15:16 36.9 87 18 93/60 (71) 94 Room Air 11/09/17 12:00 Room Air 11/09/17 11:19 38.0 104 18 105/67 (80) 90 Room Air 11/09/17 08:00 Room Air 11/09/17 07:47 39.0 11/09/17 07:19 38.2 114 18 100/85 (90) 91 Room Air 11/09/17 04:05 94 Room Air 11/09/17 04:04 37.6 114 20 98/49 (65) 94 Room Air 11/09/17 00:05 37.3 107 20 108/71 94 Room Air 11/08/17 23:00 102 20 118/79 94 Room Air 11/08/17 22:30 106 Physical Exam General Appearance: + pertinent finding (very fatigued appearing) Respiratory/Chest: lungs clear, normal breath sounds, no respiratory distress Cardiovascular: regular rate, rhythm, no gallop, no murmur Abdomen: normal bowel sounds, non tender, soft Extremities: no pedal edema, no calf tenderness Laboratory Results Last 24 Hours Test 11/08/17 23:23 11/09/17 06:14 11/09/17 17:57 Acetaminophen Level 5 ug/ml White Blood Count 10.60 K/uL Red Blood Count 3.30 M/uL Hemoglobin 10.3 g/dL Hematocrit 30.0 % Mean Corpuscular Volume 90.9 fL Mean Corpuscular Hemoglobin 31.2 pg Mean Corpuscular Hemoglobin Concent 34.3 g/dl Platelet Count 178 K/uL Mean Platelet Volume 9.8 fL Neutrophils (%) (Auto) 76.9 % Lymphocytes (%) (Auto) 10.3 % Monocytes (%) (Auto) 12.4 % Eosinophils (%) (Auto) 0.0 % Basophils (%) (Auto) 0.2 % Neutrophils # (Auto) 8.16 K/uL Lymphocytes # (Auto) 1.09 K/uL Monocytes # (Auto) 1.31 K/uL Eosinophils # (Auto) 0.00 K/uL Basophils # (Auto) 0.02 K/uL RDW Standard Deviation 43.3 fL RDW Coefficient of Variation 13.0 % Immature Granulocyte % (Auto) 0.2 % Immature Granulocyte # (Auto) 0.02 K/uL Prothrombin Time 10.5 SECONDS Prothromb Time International Ratio 1.0 Sodium Level 136 mmol/L Potassium Level 3.4 mmol/L Chloride Level 107 mmol/L Carbon Dioxide Level 20 mmol/L Anion Gap 9.0 mmol/L Blood Urea Nitrogen 8 mg/dl Creatinine 0.67 mg/dl Est Creatinine Clear Calc Drug Dose 103.2 ml/min Estimated GFR () 123.9 Estimated GFR (Non- 106.9 BUN/Creatinine Ratio 12.5 Random Glucose 130 mg/dl Calcium Level 7.4 mg/dl Total Bilirubin 0.5 mg/dl 0.3 mg/dl Aspartate Amino Transf (AST/SGOT) 25 U/L 53 U/L Alanine Aminotransferase (ALT/SGPT) 45 U/L 57 U/L Alkaline Phosphatase 49 U/L 51 U/L Total Protein 5.7 gm/dl 5.5 gm/dl Albumin 2.4 gm/dl 2.3 gm/dl Globulin 3.3 gm/dl Albumin/Globulin Ratio 0.7 Direct Bilirubin < 0.1 mg/dl Assessment and Plan Assessment and Plan: This is a 42 year old female who is admitted for pyelonephritis and acetaminophen toxicity. PYELONEPHRITIS - Pt still reporting pain and subjective fever. Febrile at 39C. WBC decreased from 15.25 to 10.6. - Pt was originally started on vancomycin with adverse reaction and was switched to daptomycin. She was also placed on imipenum-cilastin. Subsequent cultures reveal Gram negative bacillus. - Discontinue daptomycin in light of preliminary culture. Await final result for sensitivities and consider stepping Gram negative coverage down to ceftriaxone or ciprofloxacin. ACETAMINOPHEN TOXICITY - LFTs were not elevated on admission despite using 6g in 24 hours x4 days. AST has since risen to 53. - N-acetylcysteine was provided per the protocol recommended by poison control. - Continue daily CMP to monitor LFTs. Will re-evaluate protocol in AM. PAIN - Patient still feels "terrible" due to pain and fever. - Begin ibuprofen as needed. DVT PPX - Pt denies calf pain. - Continue heparin and ambulate as tolerated. Continued [facility] stay due to: fever
[2017-11-09] MEDS ORDERED: IBUPROFEN 600 MG TAB PO ONE (22:00)
[2017-11-10] VITALS (12 sets, daily range): BP systolic 107–127; BP diastolic 70–79; PULSE 78–107; TEMP 36.5–38.8; O2SAT 93–98
[2017-11-10 06:35] LABS: HEMATOCRIT 29.6 % (37-47); MEAN CELL VOLUME 91.1 fL (80-100); MEAN CORPUSCULAR HEMOGLOBIN 30.8 pg (25-34); MEAN CORPUSCULAR HGB CONC 33.8 g/dl (32-36); MEAN PLATELET VOLUME 9.7 fL (7.4-10.4); PLATELET COUNT 178 K/uL (130-400); RED CELL DISTRIBUTION WIDTH CV 13.1 % (11.5-14.5); RED CELL DISTRIBUTION WIDTH SD 43.5 fL (36.4-46.3); WHITE BLOOD COUNT 6.84 K/uL (4.8-10.8)
[2017-11-10 07:16] LABS: ALBUMIN 2.3 gm/dl (3.4-5.0); CALCIUM 7.8 mg/dl (8.5-10.1); CREATININE 0.62 mg/dl (0.60-1.20); POTASSIUM 3.7 mmol/L (3.5-5.1)
--- NOTE | 2017-11-10 08:29 | Family Medicine Progress Note ---
Progress Note Date of Service Nov 10, 2017. Subjective Pt evaluation today including: conversation w/ patient, physical exam, chart review, lab review, review of studies Patient reports having fevers overnight and having chest tightness and shortness of breathe. She continues to have right flank pain. She also endorse RUQ pain, worse after eating. Denies n/v/d. Constitutional: + fever, + chills, + fatigue Respiratory: + shortness of breath, No cough, No sputum, No wheezing Cardiovascular: No chest pain, No palpitations Abdomen: + pain (RUQ ), No nausea, No vomiting, No diarrhea Medications Current Inpatient Medications Medications (Trade) Dose Ordered Sig/Luis Alberto Route Start Time Stop Time Status Last Admin Dose Admin Ioversol (Optiray 320) 100 ml UD PRN IV 11/08/17 19:45 11/12/17 19:44 Al Hydrox/Mg Hydrox/Simethicone (Maalox Max Susp) 15 ml Q4H PRN PO 11/08/17 22:45 12/08/17 22:44 Magnesium Hydroxide (Milk Of Magnesia Susp) 30 ml Q12H PRN PO 11/08/17 22:45 12/08/17 22:44 Ondansetron HCl (Zofran Inj) 4 mg Q6H PRN IV 11/08/17 22:45 12/08/17 22:44 11/10/17 13:14 4 MG Nitroglycerin (Nitrostat Tab) 0.4 mg UD PRN SL 11/08/17 22:45 12/08/17 22:44 Polyethylene (Miralax Powder Packet) 17 gm DAILY PRN PO 11/08/17 22:45 12/08/17 22:44 Morphine Sulfate (MoRPHine SULFATE INJ) 2 mg Q4H PRN IV 11/08/17 22:45 11/22/17 22:44 11/09/17 00:36 2 MG Heparin Sodium (Porcine) (Heparin Sq 5000 Unit/0.5ml) 5,000 unit Q12 SQ 11/09/17 09:00 12/09/17 08:59 11/10/17 09:03 5,000 UNIT Diphenhydramine HCl (Benadryl Inj) 50 mg Q4H PRN IV 11/09/17 05:30 12/09/17 05:29 Tramadol HCl (Ultram Tab) 50 mg Q4H PRN PO 11/09/17 05:30 12/09/17 05:29 11/10/17 12:06 50 MG Pantoprazole Sodium (Protonix Tab) 40 mg QAM PO 11/10/17 09:00 11/12/17 23:59 11/10/17 09:03 40 MG Miscellaneous Information (Consult) 1 ea UD PRN N/A 11/10/17 14:00 12/10/17 13:59 Linezolid 600 mg/ Prmx 300 ml @ 300 mls/hr Q12@0900,2100 IV 11/10/17 23:00 11/17/17 22:59 Ioversol (Optiray 320) 111 ml UD PRN IV 11/10/17 14:15 11/14/17 14:14 Piperacillin Sod/ Tazobactam Sod 4.5 gm/Dextrose 120 ml @ 30 mls/hr Q8H IV 11/10/17 20:00 11/17/17 19:59 11/10/17 19:42 30 MLS/HR Potassium Phosphate 30 mmol/ Sodium Chloride 510 ml @ 88 mls/hr TODAY@1745 IV 11/10/17 17:45 11/10/17 23:33 11/10/17 18:15 88 MLS/HR Ibuprofen (Advil Tab) 400 mg Q8H PRN PO 11/10/17 17:45 12/10/17 17:44 Objective Vital Signs Date Time Temp Pulse Resp B/P (MAP) Pulse Ox O2 Delivery O2 Flow Rate FiO2 11/10/17 18:55 36.7 93 20 127/79 (95) 98 11/10/17 16:42 36.7 89 18 117/75 (89) 95 Room Air 11/10/17 16:00 Room Air 11/10/17 15:07 37.0 101 18 114/70 (85) 94 Room Air 11/10/17 13:39 38.8 11/10/17 13:00 36 95 Room Air 11/10/17 12:31 38.0 107 18 117/75 (89) 93 11/10/17 12:30 Room Air 11/10/17 12:27 93 Room Air 11/10/17 08:38 22 11/10/17 08:06 93 Room Air 11/10/17 08:02 36.8 100 16 107/71 (83) 93 Room Air 11/10/17 08:00 Room Air 11/10/17 04:00 Room Air 11/10/17 03:54 36.5 78 18 109/73 (85) 93 Room Air 11/10/17 00:00 Room Air 11/10/17 00:00 37.0 94 Room Air 11/09/17 23:00 39.1 117 18 118/72 (87) 89 Room Air 11/09/17 21:48 38.7 11/09/17 21:36 100 Room Air Physical Exam General Appearance: WD/WN, no apparent distress Respiratory/Chest: chest non-tender, lungs clear, normal breath sounds, + decreased breath sounds (bilaterally ) Cardiovascular: regular rate, rhythm, no edema, no murmur Abdomen: normal bowel sounds, + tenderness (ruq), + pertinent finding (right cva tenderness) Neurologic/Psychiatric: alert, normal mood/affect, oriented x 3 Skin: normal color, warm/dry, no rash Laboratory Results 11/10/17 14:21 Red Blood Count 3.50, Mean Corpuscular Volume 89.1, Mean Corpuscular Hemoglobin 30.6, Mean Corpuscular Hemoglobin Concent 34.3, Mean Platelet Volume 9.8, Neutrophils (%) (Auto) 77.5, Lymphocytes (%) (Auto) 9.6, Monocytes (%) (Auto) 11.9, Eosinophils (%) (Auto) 0.5, Basophils (%) (Auto) 0.3, Neutrophils # (Auto ) 6.81, Lymphocytes # (Auto) 0.84, Monocytes # (Auto) 1.05, Eosinophils # (Auto ) 0.04, Basophils # (Auto) 0.03 11/10/17 14:21 Test 11/10/17 14:10 11/10/17 14:13 11/10/17 14:21 Influenza Type A (RT-PCR) Neg for Influ A (NEG) Influenza Type A Antigen Neg for Influ A (NEG) Influenza Type B Antigen Neg for Influ B (NEG) Influenza Type B (RT-PCR) Neg for Influ B (NEG) Urine Color YELLOW Urine Appearance CLEAR (CLEAR) Urine pH 5.0 (4.5-7.5) Urine Specific [place] 1.017 (1.000-1.030) Urine Protein NEG (NEG) Urine Glucose (UA) NEG (NEG) Urine Ketones NEG (NEG) Urine Occult Blood NEG (NEG) Urine Nitrite NEG (NEG) Urine Bilirubin NEG (NEG) Urine Urobilinogen NEG (NEG) Urine Leukocyte Esterase NEG (NEG) White Blood Count 8.79 K/uL (4.8-10.8) Red Blood Count 3.50 M/uL (4.2-5.4) Hemoglobin 10.7 g/dL (12.0-16.0) Hematocrit 31.2 % (37-47) Mean Corpuscular Volume 89.1 fL (80-100) Mean Corpuscular Hemoglobin 30.6 pg (25-34) Mean Corpuscular Hemoglobin Concent 34.3 g/dl (32-36) Platelet Count 218 K/uL (130-400) Mean Platelet Volume 9.8 fL (7.4-10.4) Neutrophils (%) (Auto) 77.5 % Lymphocytes (%) (Auto) 9.6 % Monocytes (%) (Auto) 11.9 % Eosinophils (%) (Auto) 0.5 % Basophils (%) (Auto) 0.3 % Neutrophils # (Auto) 6.81 K/uL (1.4-6.5) Lymphocytes # (Auto) 0.84 K/uL (1.2-3.4) Monocytes # (Auto) 1.05 K/uL (0.11-0.59) Eosinophils # (Auto) 0.04 K/uL (0-0.5) Basophils # (Auto) 0.03 K/uL (0-0.2) RDW Standard Deviation 41.5 fL (36.4-46.3) RDW Coefficient of Variation 12.8 % (11.5-14.5) Immature Granulocyte % (Auto) 0.2 % Immature Granulocyte # (Auto) 0.02 K/uL (0.00-0.02) Prothrombin Time 9.7 SECONDS (9.0-12.0) Prothromb Time International Ratio 0.9 (0.9-1.1) Anion Gap 7.0 mmol/L (3-11) Est Creatinine Clear Calc Drug Dose 104.4 ml/min Estimated GFR () 123.3 Estimated GFR (Non- 106.4 BUN/Creatinine Ratio 7.3 (10-20) Lactic Acid Level 1.1 mmol/L (0.4-2.0) Calcium Level 8.0 mg/dl (8.5-10.1) Phosphorus Level 0.7 mg/dl (2.5-4.9) Magnesium Level 1.8 mg/dl (1.8-2.4) Total Bilirubin 0.4 mg/dl (0.2-1) Direct Bilirubin < 0.1 mg/dl (0-0.2) Aspartate Amino Transf (AST/SGOT) 106 U/L (15-37) Alanine Aminotransferase (ALT/SGPT) 131 U/L (12-78) Alkaline Phosphatase 74 U/L (45-117) Total Protein 6.6 gm/dl (6.4-8.2) Albumin 2.6 gm/dl (3.4-5.0) Lipase 194 U/L (73-393) Procalcitonin 0.39 ng/ml (0-0.5) Assessment and Plan 42 year old female with no past medical history presents to ED with fever, RUQ, R flank pain, admitted for pyelonephritis 11/10 Patient reports this morning feeling short of breathe overnight. Patient had a 4 kg over the course of 1 day of recieving large quantities of IV fluids and medication (NAC and abx), totaling approx 4.5 L with a positive balance of 1.7L . She was reassessed this afternoon after sx persisted. ICU consulted and Dr. Little performed bedside USG which was demonstrated bilateral pleural effusions. Patient was given 40 IV Lasix. Due to persisting fever and concern for continued sepsis, switching from Rocephin to broad spectrum abx.. WBC and lactic acid were unremarkable. Pt is flu negative Will continue to follow LFTs. Fevers treated with Motrin. Sepsis secondary to pyelonephritis - IV abx day 2; switched to IV Linezolid 600 mg/piperacillin - Dc IVF - Zofran PRN nausea - Tramadol and morphine PRN pain - Toradol once - Repeat ab ct to address continued ab pain Pulmonary Edema -Dc fluids -Follow sats Tylenol overdose - Differing history regarding tylenol intake; patient reports taking 6 grams in one day. AST mildly elevated - Ordered Tylenol level--low - Liver enzymes improved - Will continue to trend LFTs - Dc'ed n-acetylcysteine - Hold Tylenol for now Hypophosphatemia/hypokalemia -Replenish VTE PPx - SCD History Resident Physician Supervision Note: I was present with Dr. Navarro during the history and exam. I discussed the case with the resident and agree with the findings and plan as documented in the note. Any exceptions or clarifications are listed here. Overnight with increasing tachypnea and malaise, followed by worsening of right flank pain and new onset fever in early afternoon. Resting in bed with mild discomfort but mounting concern. Reports no n/v, lightheadedness, CP/ palpitations, urinary complaints, diarrhea/constipation. 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 Little - furosemide 40mg IV x 1, monitor BP, I/O. O2 per protocol. Abdominal pain - recurrence, still concerning for pyelonephritis with sepsis - re-broaden abx coverage, re-culture. Repeat lab studies w/ addition of influenza , lipase, lactate, procal. Repeat CT abd. T/C further w/u of gallbladder dz. 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
[2017-11-10] MEDS ORDERED: NURSING VERBAL MED ORDER ONE ×2 (08:45→12:30)
[2017-11-10] MEDS: PANTOprazole SOD 40 MG TAB PO SCH (09:03)
[2017-11-10] MEDS: HEPARIN SOD 5000 UNIT/0.5 ML CARP SQ SCH ×2 (09:03→21:10)
[2017-11-10] MEDS: TRAMADOL HCL 50 MG TAB PO PRN ×2 (12:06→21:16)
[2017-11-10] MEDS: CEFTRIAXONE SOD INJ 2000 MG in DEXTROSE 5% 50ML IV SCH (12:08)
[2017-11-10] MEDS ORDERED: IBUPROFEN 600 MG TAB PO ONE (12:30)
[2017-11-10] MEDS: ONDANSETRON INJ 2 MG/ML 2 ML VIAL IV PRN (13:14)
[2017-11-10] MEDS ORDERED: PIPERACILL/TAZOBAC IV 3.375 GM in DEXTROSE 5% 100ML 100 ML IV SCH (14:00)
[2017-11-10] MEDS ORDERED: PIPERACILL/TAZOBAC CONSULT ACTIVE PRN (14:00)
[2017-11-10] MEDS ORDERED: OPTIRAY 320 IV PRN (14:15)
[2017-11-10] MEDS ORDERED: PIPERACILL/TAZOBAC IV 4.5 GM in DEXTROSE 5% 100ML IV STA (14:18)
[2017-11-10] MEDS ORDERED: LINEZOLID / D5W 600 MG in PREMIXED IN D5W 300 ML IV ONE (14:30)
--- NOTE | 2017-11-10 14:31 | DIAGNOSTIC IMAGING REPORT ---
CHEST ONE VIEW PORTABLE CLINICAL HISTORY: sirs, tachypnea; rule out PNA COMPARISON STUDY: Chest radiograph November 08, 2017. FINDINGS: There is no pneumothorax. Small right and trace left pleural effusions have developed. Right basilar opacity is noted. Note is made of pulmonary vascular congestion with possible mild pulmonary edema. IMPRESSION: 1. Interval development of small right and trace left pleural effusions. Persistent right basilar opacity likely reflects atelectasis although pneumonia could appear similar. 2. Pulmonary vascular congestion with possible mild pulmonary edema. Electronically signed by: Demetrio Goins M.D. 11/10/2017 2:29 PM Dictated Date/Time: 11/10/2017 2:27 PM
--- NOTE | 2017-11-10 14:32 | Progress Note ---
Progress Note Date of Service Nov 10, 2017. Progress Note ID Consult Dictated # [id number] A/P: 1. Right Pyelonephritis 2. Fever 3. Leukocytotis - resolved -Continue emperic abx for now, follow culture results -If no significant improvement, may need repeat imaging with contrast r/o collection -Repeat blood cultures pending -Will follow, thank you
[2017-11-10 14:36] LABS: BASO % 0.3 %; BASO ABS # 0.03 K/uL (0-0.2); EOS % 0.5 %; EOS ABS # 0.04 K/uL (0-0.5); HEMATOCRIT 31.2 % (37-47); HEMOGLOBIN 10.7 g/dL (12.0-16.0); IG# 0.02 K/uL (0.00-0.02); LYMPH % 9.6 %; LYMPH ABS # 0.84 K/uL (1.2-3.4); MEAN CELL VOLUME 89.1 fL (80-100); MEAN CORPUSCULAR HEMOGLOBIN 30.6 pg (25-34); MEAN PLATELET VOLUME 9.8 fL (7.4-10.4); MONO % 11.9 %; MONO ABS # 1.05 K/uL (0.11-0.59); NEUT % 77.5 %; NEUT ABS # 6.81 K/uL (1.4-6.5); PLATELET COUNT 218 K/uL (130-400); RED CELL DISTRIBUTION WIDTH CV 12.8 % (11.5-14.5); RED CELL DISTRIBUTION WIDTH SD 41.5 fL (36.4-46.3); WHITE BLOOD COUNT 8.79 K/uL (4.8-10.8)
[2017-11-10 14:40] LABS: MEAN CORPUSCULAR HGB CONC 34.3 g/dl (32-36)
[2017-11-10 14:42] LABS: INR 0.9 (0.9-1.1)
[2017-11-10 14:57] LABS: ALBUMIN 2.6 gm/dl (3.4-5.0); ALT/SGPT 131 U/L (12-78); AST/SGOT 106 U/L (15-37); BLOOD UREA NITROGEN 5 mg/dl (7-18); CARBON DIOXIDE 22 mmol/L (21-32); CREATININE 0.68 mg/dl (0.60-1.20); GLUCOSE 101 mg/dl (70-99); POTASSIUM 3.5 mmol/L (3.5-5.1); SODIUM 138 mmol/L (136-145)
[2017-11-10 15:02] LABS: ALKALINE PHOSPHATASE 74 U/L (45-117); TOTAL PROTEIN 6.6 gm/dl (6.4-8.2)
[2017-11-10 15:05] LABS: PHOSPHORUS 0.7 mg/dl (2.5-4.9)
--- NOTE | 2017-11-10 15:33 | INFECT. DISEASE CONSULTATION ---
DATE OF CONSULTATION: 11/10/2017 HISTORY OF PRESENT ILLNESS: This is a 42-year-old female who was admitted to the hospital with right flank pain in addition to fever of 101.5 degrees prior to admission. She does have a history of pyelonephritis many years ago during , but otherwise had been healthy. She did undergo a CAT scan of the abdomen which showed a right pyelonephritis with perinephric fat stranding and bladder wall thickening. She denies any hematuria or dysuria. She has received multiple antibiotics since admission to the hospital including vancomycin, daptomycin, ceftriaxone, imipenem, and now Zyvox and Zosyn. Infectious disease was consulted to Zyvox approval. She has been persistently febrile since admission to the hospital; she was 39.2 on the 28th, 39.1 on the th and her T-max in the past 24 hours is 38.8, which is her current temperature. She recently received Motrin and she states she is feeling significantly better but is having some sweating now as her fever breaking. She does admit to sweats and chills. Her initial blood cultures done in the Emergency Room so far are negative and repeat blood cultures were done today and are pending. She did have a leukocytosis of 15.2 on admission which is improved to 6.8 today. Her LFTs are mildly elevated today. She did have an ultrasound of the gallbladder which was unremarkable. Her urinalysis in the ER had greater than 30 WBCs, small amount of leukocyte esterase and 4+ bacteria. Her urine culture from the is growing E. coli with sensitivities pending. She is tolerating antibiotics well. She states she did eat breakfast this morning and was feeling significantly better but then developed fever again this afternoon. Prior to this morning she states she had very little appetite and poor p.o. intake. She denies any nausea, vomiting or diarrhea. She denies any chest pain, cough or shortness of breath. Her remaining review of systems is reviewed and unremarkable. She denies any past medical or surgical history. She does have a history of exploratory laparotomy for infertility. FAMILY HISTORY: Noncontributory. SOCIAL HISTORY: Significant for tobacco use in the past. She drinks occasionally. She denies any drug use. She is . She denies any sick contacts. ALLERGIES: SULFA ANTIBIOTICS AND POLYMYXIN B. CURRENT MEDICATIONS: Include Zyvox, Zosyn, Protonix, subQ heparin, Benadryl, Ultram, Maalox, milk of magnesia, Zofran, MiraLax and morphine. PHYSICAL EXAMINATION: VITAL SIGNS: She is currently febrile with a temperature of 38.8. This is her T-max for the past 24 hours. Overall, her fever curve is improving from admission, pulse is 107, respiratory rate 18, blood pressure 117/75, oxygen saturation 93% on room air. GENERAL: She is awake, alert and oriented x3. She is in no acute distress. HEENT: Mucous membranes are moist. Extraocular muscles are intact. HEART: Regular and tachycardic. LUNGS: Clear bilaterally. ABDOMEN: Soft, nontender, nondistended. There is right flank pain. EXTREMITIES: There is no lower extremity edema bilaterally. SKIN: Without rash. LABORATORY STUDIES: CBC today reveals a white blood cell count of 6.8, hemoglobin 10 and platelets of 178. Chemistry panel reveals a sodium of 141, potassium 3.7, chloride 111, bicarbonate 22, BUN 4, creatinine 0.6, glucose is 106. AST is 65, ALT is 93. test was negative. Procalcitonin is pending. Again, urinalysis in the ER showed small leukocyte esterase, positive nitrite, greater than 30 WBCs and 4+ bacteria. Blood cultures from the are no growth to date x2 sets. A urine culture from the is growing over 100,000 E. coli with sensitivities pending. A CT of the abdomen and pelvis is as above. Chest x-ray in the ER was negative. ASSESSMENT AND PLAN: 1. Pyelonephritis. 2. Leukocytosis, resolved. 3. Fever, improving. She will remain on empiric antibiotics pending the results of blood and urine cultures. Hopefully, she will have resolution of her fever within the next 48 hours. She has had slight improvement in her fever curve overall. We will follow along with you.
[2017-11-10 15:39] LABS: INFLUENZA B ANTIGEN Neg for Influ B (NEG)
--- NOTE | 2017-11-10 15:46 | DIAGNOSTIC IMAGING REPORT ---
CT ABD/PELVIS IV CONTRAST ONLY CLINICAL HISTORY: Polynephritis. Follow-up examination. COMPARISON STUDY: 11/08/2017 TECHNIQUE: Following the IV administration of 120 mL of Optiray-320, CT scan of the abdomen and pelvis was performed from the lung bases to the proximal femurs. Images are reviewed in the axial, sagittal, and coronal planes. IV contrast was administered without complication. A dose lowering technique was utilized adhering to the principles of ALARA. CT DOSE: 972.26 mGycm FINDINGS: Lower chest: Since the prior study, the patient has developed bilateral pleural effusions right greater than left. There are bilateral lower lobe airspace opacities right greater than left. Liver: There is a stable 8 mm hypodensity within the right hepatic lobe. Gallbladder: Unremarkable. Spleen: Normal in size and attenuation. Pancreas: Unremarkable. Adrenal glands: Unremarkable. Kidneys: There is persistent inhomogeneous right renal enhancement with minor perinephric fat infiltration. The findings are again consistent with pyelonephritis. There is no significant hydronephrosis. Bowel: There are no transition zones indicate bowel obstruction. There is no acute diverticulitis. There are no findings to indicate acute appendicitis. Peritoneum: There is a small amount of free pelvic fluid, minimally increased when compared the preceding study. No free air is visualized. Vasculature: The abdominal aorta is normal in course and caliber. Adenopathy: None. Pelvic viscera: There is diminished bladder wall thickening. Skeletal structures: No destructive osseous lesions are seen. IMPRESSION: 1. Persistent heterogeneous enhancement of the right kidney, consistent with the clinical diagnosis of pyelonephritis. No evidence of hydronephrosis. No evidence of perinephric abscess. 2. Interval development of small bilateral pleural effusions right greater than left with associated bibasilar airspace opacities 3. Small amount of free pelvic fluid, minimally increased when compared the prior study 4. Interval decrease in the previous described bladder wall thickening Electronically signed by: Ramon Carranza M.D. 11/10/2017 3:44 PM Dictated Date/Time: 11/10/2017 3:30 PM
[2017-11-10 16:18] LABS: INFLUENZA A PCR Neg for Influ A (NEG); INFLUENZA B PCR Neg for Influ B (NEG)
[2017-11-10] MEDS ORDERED: POTASSIUM PHOS 3 MMOL/1 ML INFUSION IV STA (17:29)
[2017-11-10] MEDS ORDERED: POTASSIUM PHOSPHATE INJ 30 MMOL in SODIUM CHLORIDE 0.9% 500ML 500 ML IV SCH (17:45)
[2017-11-10] MEDS ORDERED: FUROSEMIDE INJ 40 MG in SYRINGE 0 ML IV SCH (18:00)
[2017-11-10] MEDS: PIPERACILL/TAZOBAC IV 4.5 GM in DEXTROSE 5% 100ML IV SCH (19:42)
[2017-11-10 21:06] LABS: BASO % 0.4 %; BASO ABS # 0.03 K/uL (0-0.2); EOS ABS # 0.07 K/uL (0-0.5); HEMOGLOBIN 11.5 g/dL (12.0-16.0); IG# 0.02 K/uL (0.00-0.02); LYMPH % 22.7 %; LYMPH ABS # 1.62 K/uL (1.2-3.4); MEAN CELL VOLUME 90.4 fL (80-100); MEAN CORPUSCULAR HEMOGLOBIN 31.5 pg (25-34); MEAN CORPUSCULAR HGB CONC 34.8 g/dl (32-36); MEAN PLATELET VOLUME 9.8 fL (7.4-10.4); MONO % 12.2 %; MONO ABS # 0.87 K/uL (0.11-0.59); NEUT % 63.4 %; NEUT ABS # 4.52 K/uL (1.4-6.5); PLATELET COUNT 221 K/uL (130-400); RED CELL DISTRIBUTION WIDTH CV 12.8 % (11.5-14.5); RED CELL DISTRIBUTION WIDTH SD 42.3 fL (36.4-46.3); WHITE BLOOD COUNT 7.13 K/uL (4.8-10.8)
[2017-11-10 21:31] LABS: ALBUMIN 2.8 gm/dl (3.4-5.0); ALT/SGPT 127 U/L (12-78); BLOOD UREA NITROGEN 4 mg/dl (7-18); CALCIUM 8.1 mg/dl (8.5-10.1); CARBON DIOXIDE 27 mmol/L (21-32); CREATININE 0.79 mg/dl (0.60-1.20); GLUCOSE 121 mg/dl (70-99); POTASSIUM 3.3 mmol/L (3.5-5.1); SODIUM 138 mmol/L (136-145)
[2017-11-10 21:47] LABS: ALKALINE PHOSPHATASE 73 U/L (45-117); AST/SGOT 81 U/L (15-37); PHOSPHORUS 2.9 mg/dl (2.5-4.9); TOTAL PROTEIN 6.9 gm/dl (6.4-8.2)
--- NOTE | 2017-11-10 22:13 | Medical Student: [facility] ---
Med Student Progress Note Date of Service Nov 10, 2017. Subjective Pt evaluation today including: conversation w/ patient, physical exam Pain: Controlled PO Intake: Minimal Voiding: no voiding problems Naomi is a 42 year old female who is admitted for pyelonephritis and acetaminophen toxicity. She states she is "better today" with good appetite and increased energy. She continues to have flank and RUQ pain, but this has improved. As we are talking, she states she is feeling "chills come on." She is also complaining of a chest 'ache' with breathing and cough, and she believes she is fluid overloaded because her skin feels "tight." She denies fevers, SOB, constipation, nausea, CP, and calf pain. Overall feels 50% back to normal self. Visiting patient later in the day shows different clinical picture. Pt feels febrile, has decreased appetite, and decreased energy. She feels like something is wrong with her gallbladder. She doesn't know where this came from because she felt so good this morning. Objective Vital Signs Date Time Temp Pulse Resp B/P (MAP) Pulse Ox O2 Delivery O2 Flow Rate FiO2 11/10/17 21:11 37.0 11/10/17 18:55 36.7 93 20 127/79 (95) 98 11/10/17 16:42 36.7 89 18 117/75 (89) 95 Room Air 11/10/17 16:00 Room Air 11/10/17 15:07 37.0 101 18 114/70 (85) 94 Room Air 11/10/17 13:39 38.8 11/10/17 13:00 36 95 Room Air 11/10/17 12:31 38.0 107 18 117/75 (89) 93 11/10/17 12:30 Room Air 11/10/17 12:27 93 Room Air 11/10/17 08:38 22 11/10/17 08:06 93 Room Air 11/10/17 08:02 36.8 100 16 107/71 (83) 93 Room Air 11/10/17 08:00 Room Air 11/10/17 04:00 Room Air 11/10/17 03:54 36.5 78 18 109/73 (85) 93 Room Air 11/10/17 00:00 Room Air 11/10/17 00:00 37.0 94 Room Air 11/09/17 23:00 39.1 117 18 118/72 (87) 89 Room Air Physical Exam General Appearance: no apparent distress, + pertinent finding (improved energy) ENT: TMs normal Respiratory/Chest: no respiratory distress, + crackles (at lung bases) Cardiovascular: regular rate, rhythm, no gallop, no murmur Abdomen: normal bowel sounds, soft, + tenderness (RUQ) Extremities: normal inspection, no calf tenderness Laboratory Results Last 24 Hours Test 11/10/17 06:22 11/10/17 07:54 11/10/17 14:10 11/10/17 14:13 White Blood Count 6.84 K/uL Red Blood Count 3.25 M/uL Hemoglobin 10.0 g/dL Hematocrit 29.6 % Mean Corpuscular Volume 91.1 fL Mean Corpuscular Hemoglobin 30.8 pg Mean Corpuscular Hemoglobin Concent 33.8 g/dl RDW Standard Deviation 43.5 fL RDW Coefficient of Variation 13.1 % Platelet Count 178 K/uL Mean Platelet Volume 9.7 fL Sodium Level 141 mmol/L Potassium Level 3.7 mmol/L Chloride Level 111 mmol/L Carbon Dioxide Level 22 mmol/L Anion Gap 8.0 mmol/L Blood Urea Nitrogen 4 mg/dl Creatinine 0.62 mg/dl Est Creatinine Clear Calc Drug Dose 114.6 ml/min Estimated GFR () 127.1 Estimated GFR (Non- 109.7 BUN/Creatinine Ratio 7.3 Random Glucose 106 mg/dl Calcium Level 7.8 mg/dl Total Bilirubin 0.5 mg/dl Direct Bilirubin 0.1 mg/dl Aspartate Amino Transf (AST/SGOT) 65 U/L Alanine Aminotransferase (ALT/SGPT) 93 U/L Alkaline Phosphatase 60 U/L Total Protein 6.0 gm/dl Albumin 2.3 gm/dl Prothrombin Time 10.0 SECONDS Prothromb Time International Ratio 1.0 Influenza Type A (RT-PCR) Neg for Influ A Influenza Type A Antigen Neg for Influ A Influenza Type B Antigen Neg for Influ B Influenza Type B (RT-PCR) Neg for Influ B Urine Color YELLOW Urine Appearance CLEAR Urine pH 5.0 Urine Specific [place] 1.017 Urine Protein NEG Urine Glucose (UA) NEG Urine Ketones NEG Urine Occult Blood NEG Urine Nitrite NEG Urine Bilirubin NEG Urine Urobilinogen NEG Urine Leukocyte Esterase NEG Test 11/10/17 14:21 11/10/17 20:51 11/10/17 20:57 White Blood Count 8.79 K/uL 7.13 K/uL Red Blood Count 3.50 M/uL 3.65 M/uL Hemoglobin 10.7 g/dL 11.5 g/dL Hematocrit 31.2 % 33.0 % Mean Corpuscular Volume 89.1 fL 90.4 fL Mean Corpuscular Hemoglobin 30.6 pg 31.5 pg Mean Corpuscular Hemoglobin Concent 34.3 g/dl 34.8 g/dl Platelet Count 218 K/uL 221 K/uL Mean Platelet Volume 9.8 fL 9.8 fL Neutrophils (%) (Auto) 77.5 % 63.4 % Lymphocytes (%) (Auto) 9.6 % 22.7 % Monocytes (%) (Auto) 11.9 % 12.2 % Eosinophils (%) (Auto) 0.5 % 1.0 % Basophils (%) (Auto) 0.3 % 0.4 % Neutrophils # (Auto) 6.81 K/uL 4.52 K/uL Lymphocytes # (Auto) 0.84 K/uL 1.62 K/uL Monocytes # (Auto) 1.05 K/uL 0.87 K/uL Eosinophils # (Auto) 0.04 K/uL 0.07 K/uL Basophils # (Auto) 0.03 K/uL 0.03 K/uL RDW Standard Deviation 41.5 fL 42.3 fL RDW Coefficient of Variation 12.8 % 12.8 % Immature Granulocyte % (Auto) 0.2 % 0.3 % Immature Granulocyte # (Auto) 0.02 K/uL 0.02 K/uL Prothrombin Time 9.7 SECONDS Prothromb Time International Ratio 0.9 Sodium Level 138 mmol/L 138 mmol/L Potassium Level 3.5 mmol/L 3.3 mmol/L Chloride Level 109 mmol/L 105 mmol/L Carbon Dioxide Level 22 mmol/L 27 mmol/L Anion Gap 7.0 mmol/L 7.0 mmol/L Blood Urea Nitrogen 5 mg/dl 4 mg/dl Creatinine 0.68 mg/dl 0.79 mg/dl Est Creatinine Clear Calc Drug Dose 104.4 ml/min 89.9 ml/min Estimated GFR () 123.3 105.5 Estimated GFR (Non- 106.4 91.0 BUN/Creatinine Ratio 7.3 5.2 Random Glucose 101 mg/dl 121 mg/dl Lactic Acid Level 1.1 mmol/L 1.9 mmol/L Calcium Level 8.0 mg/dl 8.1 mg/dl Phosphorus Level 0.7 mg/dl 2.9 mg/dl Magnesium Level 1.8 mg/dl Total Bilirubin 0.4 mg/dl 0.4 mg/dl Direct Bilirubin < 0.1 mg/dl < 0.1 mg/dl Aspartate Amino Transf (AST/SGOT) 106 U/L 81 U/L Alanine Aminotransferase (ALT/SGPT) 131 U/L 127 U/L Alkaline Phosphatase 74 U/L 73 U/L Total Protein 6.6 gm/dl 6.9 gm/dl Albumin 2.6 gm/dl 2.8 gm/dl Lipase 194 U/L Procalcitonin 0.39 ng/ml Assessment and Plan Assessment and Plan: This is a 42 year old female who is admitted for pyelonephritis. PYELONEPHRITIS - Urine culture shows E. coli - currently on ceftriaxone. Febrile at 38.8 this afternoon. Appreciate ID consult in setting of apparent worsening or concomitant infection. - With worsening clinical status, consider perinephric abscess. We will get CT of the abdomen. We will also get blood cultures x2, CXR, UA, CBC, CMP, and lactate. ?ACETAMINOPHEN TOXICITY - LFTs increased today - AST 53 -->65. ALT 57 -->93. - Further history reveals 6g of acetaminophen had only been taken one day. Discussion with ICU physician shows that this history paired with relatively lower than expected LFTs do not indicated overdose. - N-acetylcysteine was provided this AM per the protocol recommended by poison control. Can d/c now. - Continue daily CMP to monitor LFTs. PAIN - Controlled with Motrin. DVT PPX - Pt denies calf pain. - Continue heparin and ambulate as tolerated. Continued [facility] stay due to: fever
[2017-11-10 22:35] LABS: HEP C IGG 13 YRS+OLDER_RFLX NEG (NEG)
[2017-11-10] MEDS: LINEZOLID / D5W 600 MG in PREMIXED IN D5W 300 ML IV SCH (23:14)
[2017-11-11] VITALS (9 sets, daily range): BP systolic 99–116; BP diastolic 63–78; PULSE 85–102; TEMP 36.7–37.2; O2SAT 92–99
[2017-11-11] MEDS: ONDANSETRON INJ 2 MG/ML 2 ML VIAL IV PRN ×2 (01:11→11:26)
[2017-11-11 03:39] LABS: BASO % 0.3 %; BASO ABS # 0.02 K/uL (0-0.2); EOS % 0.9 %; EOS ABS # 0.07 K/uL (0-0.5); HEMATOCRIT 29.3 % (37-47); HEMOGLOBIN 10.1 g/dL (12.0-16.0); IG# 0.03 K/uL (0.00-0.02); LYMPH ABS # 1.14 K/uL (1.2-3.4); MEAN CELL VOLUME 89.1 fL (80-100); MEAN CORPUSCULAR HEMOGLOBIN 30.7 pg (25-34); MEAN PLATELET VOLUME 9.8 fL (7.4-10.4); MONO % 16.1 %; MONO ABS # 1.23 K/uL (0.11-0.59); NEUT % 67.3 %; NEUT ABS # 5.13 K/uL (1.4-6.5); PLATELET COUNT 211 K/uL (130-400); RED CELL DISTRIBUTION WIDTH CV 12.6 % (11.5-14.5); RED CELL DISTRIBUTION WIDTH SD 40.6 fL (36.4-46.3); WHITE BLOOD COUNT 7.62 K/uL (4.8-10.8)
[2017-11-11 03:48] LABS: INR 0.9 (0.9-1.1)
[2017-11-11 04:03] LABS: MEAN CORPUSCULAR HGB CONC 34.5 g/dl (32-36)
[2017-11-11 04:27] LABS: ALBUMIN 2.6 gm/dl (3.4-5.0); CALCIUM 7.7 mg/dl (8.5-10.1); CREATININE 0.68 mg/dl (0.60-1.20); POTASSIUM 3.2 mmol/L (3.5-5.1); TOTAL PROTEIN 6.2 gm/dl (6.4-8.2)
[2017-11-11] MEDS: PIPERACILL/TAZOBAC IV 4.5 GM in DEXTROSE 5% 100ML IV SCH ×3 (04:46→23:28)
[2017-11-11] MEDS: TRAMADOL HCL 50 MG TAB PO PRN (04:51)
[2017-11-11] MEDS: POTASSIUM CHLORIDE 20 MEQ TABCR PO SCH ×2 (08:35→17:23)
[2017-11-11] MEDS: PANTOprazole SOD 40 MG TAB PO SCH (08:35)
[2017-11-11] MEDS: IBUPROFEN 200 MG TAB PO PRN (08:37)
[2017-11-11] MEDS: LINEZOLID / D5W 600 MG in PREMIXED IN D5W 300 ML IV SCH ×2 (08:39→20:40)
[2017-11-11] MEDS: HEPARIN SOD 5000 UNIT/0.5 ML CARP SQ SCH ×2 (08:39→20:42)
--- NOTE | 2017-11-11 09:50 | Family Medicine Progress Note ---
Progress Note Date of Service Nov 11, 2017. Subjective Pt evaluation today including: conversation w/ patient, physical exam, chart review, lab review Patient is doing better today. Less pain in the abdomen. Breathing is better, mild SOB with lying flat. Continues to have decreased appetite. No fevers over night. Constitutional: No fever, No chills, No sweats Respiratory: + shortness of breath, No cough, No sputum, No wheezing Cardiovascular: No chest pain Abdomen: + pain, + nausea, No vomiting Female : No dysuria Medications Current Inpatient Medications Medications (Trade) Dose Ordered Sig/Luis Alberto Route Start Time Stop Time Status Last Admin Dose Admin Ioversol (Optiray 320) 100 ml UD PRN IV 11/08/17 19:45 11/12/17 19:44 Al Hydrox/Mg Hydrox/Simethicone (Maalox Max Susp) 15 ml Q4H PRN PO 11/08/17 22:45 12/08/17 22:44 Magnesium Hydroxide (Milk Of Magnesia Susp) 30 ml Q12H PRN PO 11/08/17 22:45 12/08/17 22:44 Ondansetron HCl (Zofran Inj) 4 mg Q6H PRN IV 11/08/17 22:45 12/08/17 22:44 11/11/17 01:11 4 MG Nitroglycerin (Nitrostat Tab) 0.4 mg UD PRN SL 11/08/17 22:45 12/08/17 22:44 Polyethylene (Miralax Powder Packet) 17 gm DAILY PRN PO 11/08/17 22:45 12/08/17 22:44 Morphine Sulfate (MoRPHine SULFATE INJ) 2 mg Q4H PRN IV 11/08/17 22:45 11/22/17 22:44 11/09/17 00:36 2 MG Heparin Sodium (Porcine) (Heparin Sq 5000 Unit/0.5ml) 5,000 unit Q12 SQ 11/09/17 09:00 12/09/17 08:59 11/11/17 08:39 5,000 UNIT Diphenhydramine HCl (Benadryl Inj) 50 mg Q4H PRN IV 11/09/17 05:30 12/09/17 05:29 Tramadol HCl (Ultram Tab) 50 mg Q4H PRN PO 11/09/17 05:30 12/09/17 05:29 11/11/17 04:51 50 MG Pantoprazole Sodium (Protonix Tab) 40 mg QAM PO 11/10/17 09:00 11/12/17 23:59 11/11/17 08:35 40 MG Miscellaneous Information (Consult) 1 ea UD PRN N/A 11/10/17 14:00 12/10/17 13:59 Linezolid 600 mg/ Prmx 300 ml @ 300 mls/hr Q12@0900,2100 IV 11/10/17 23:00 11/17/17 22:59 11/11/17 08:39 300 MLS/HR Ioversol (Optiray 320) 111 ml UD PRN IV 11/10/17 14:15 11/14/17 14:14 Piperacillin Sod/ Tazobactam Sod 4.5 gm/Dextrose 120 ml @ 30 mls/hr Q8H IV 11/10/17 20:00 11/17/17 19:59 11/11/17 04:46 30 MLS/HR Ibuprofen (Advil Tab) 400 mg Q8H PRN PO 11/10/17 17:45 12/10/17 17:44 11/11/17 08:37 400 MG Potassium Chloride (Klor-Con Tab) 20 meq BID17 PO 11/11/17 09:00 11/12/17 17:01 11/11/17 08:35 20 MEQ Objective Vital Signs Date Time Temp Pulse Resp B/P (MAP) Pulse Ox O2 Delivery O2 Flow Rate FiO2 11/11/17 07:31 36.7 89 16 103/69 (80) 94 11/11/17 04:57 37.0 102 22 103/68 (80) 93 Room Air 11/11/17 04:00 Room Air 11/11/17 00:50 37.2 94 20 106/71 (83) 94 Room Air 11/11/17 00:00 Room Air 11/10/17 21:11 37.0 11/10/17 20:00 Room Air 11/10/17 18:55 36.7 93 20 127/79 (95) 98 11/10/17 16:42 36.7 89 18 117/75 (89) 95 Room Air 11/10/17 16:00 Room Air 11/10/17 15:07 37.0 101 18 114/70 (85) 94 Room Air 11/10/17 13:39 38.8 11/10/17 13:00 36 95 Room Air 11/10/17 12:31 38.0 107 18 117/75 (89) 93 11/10/17 12:30 Room Air 11/10/17 12:27 93 Room Air Physical Exam General Appearance: WD/WN, no apparent distress Respiratory/Chest: chest non-tender, lungs clear, normal breath sounds, no respiratory distress Cardiovascular: regular rate, rhythm, no edema, no murmur Abdomen: normal bowel sounds, non tender, + pertinent finding (mild right CVA tenderness) Neurologic/Psychiatric: alert, normal mood/affect, oriented x 3 Skin: normal color, warm/dry, no rash Laboratory Results 11/11/17 03:29 Red Blood Count 3.29, Mean Corpuscular Volume 89.1, Mean Corpuscular Hemoglobin 30.7, Mean Corpuscular Hemoglobin Concent 34.5, Mean Platelet Volume 9.8, Neutrophils (%) (Auto) 67.3, Lymphocytes (%) (Auto) 15.0, Monocytes (%) (Auto) 16.1, Eosinophils (%) (Auto) 0.9, Basophils (%) (Auto) 0.3, Neutrophils # (Auto ) 5.13, Lymphocytes # (Auto) 1.14, Monocytes # (Auto) 1.23, Eosinophils # (Auto ) 0.07, Basophils # (Auto) 0.02 11/11/17 03:29 Test 11/10/17 14:10 11/10/17 14:13 11/10/17 14:21 11/10/17 20:51 Influenza Type A (RT-PCR) Neg for Influ A (NEG) Influenza Type A Antigen Neg for Influ A (NEG) Influenza Type B Antigen Neg for Influ B (NEG) Influenza Type B (RT-PCR) Neg for Influ B (NEG) Urine Color YELLOW Urine Appearance CLEAR (CLEAR) Urine pH 5.0 (4.5-7.5) Urine Specific [place] 1.017 (1.000-1.030) Urine Protein NEG (NEG) Urine Glucose (UA) NEG (NEG) Urine Ketones NEG (NEG) Urine Occult Blood NEG (NEG) Urine Nitrite NEG (NEG) Urine Bilirubin NEG (NEG) Urine Urobilinogen NEG (NEG) Urine Leukocyte Esterase NEG (NEG) Magnesium Level 1.8 mg/dl (1.8-2.4) Lipase 194 U/L (73-393) Procalcitonin 0.39 ng/ml (0-0.5) Test 11/10/17 20:57 11/11/17 03:29 Lactic Acid Level 1.9 mmol/L (0.4-2.0) Phosphorus Level 2.9 mg/dl (2.5-4.9) Hepatitis B Surface Antigen NEG (NEG) Hepatitis C Antibody NEG (NEG) White Blood Count 7.62 K/uL (4.8-10.8) Red Blood Count 3.29 M/uL (4.2-5.4) Hemoglobin 10.1 g/dL (12.0-16.0) Hematocrit 29.3 % (37-47) Mean Corpuscular Volume 89.1 fL (80-100) Mean Corpuscular Hemoglobin 30.7 pg (25-34) Mean Corpuscular Hemoglobin Concent 34.5 g/dl (32-36) Platelet Count 211 K/uL (130-400) Mean Platelet Volume 9.8 fL (7.4-10.4) Neutrophils (%) (Auto) 67.3 % Lymphocytes (%) (Auto) 15.0 % Monocytes (%) (Auto) 16.1 % Eosinophils (%) (Auto) 0.9 % Basophils (%) (Auto) 0.3 % Neutrophils # (Auto) 5.13 K/uL (1.4-6.5) Lymphocytes # (Auto) 1.14 K/uL (1.2-3.4) Monocytes # (Auto) 1.23 K/uL (0.11-0.59) Eosinophils # (Auto) 0.07 K/uL (0-0.5) Basophils # (Auto) 0.02 K/uL (0-0.2) RDW Standard Deviation 40.6 fL (36.4-46.3) RDW Coefficient of Variation 12.6 % (11.5-14.5) Immature Granulocyte % (Auto) 0.4 % Immature Granulocyte # (Auto) 0.03 K/uL (0.00-0.02) Prothrombin Time 9.7 SECONDS (9.0-12.0) Prothromb Time International Ratio 0.9 (0.9-1.1) Anion Gap 6.0 mmol/L (3-11) Est Creatinine Clear Calc Drug Dose 104.4 ml/min Estimated GFR () 123.3 Estimated GFR (Non- 106.4 BUN/Creatinine Ratio 6.0 (10-20) Calcium Level 7.7 mg/dl (8.5-10.1) Total Bilirubin 0.6 mg/dl (0.2-1) Direct Bilirubin 0.1 mg/dl (0-0.2) Aspartate Amino Transf (AST/SGOT) 58 U/L (15-37) Alanine Aminotransferase (ALT/SGPT) 111 U/L (12-78) Alkaline Phosphatase 67 U/L (45-117) Total Protein 6.2 gm/dl (6.4-8.2) Albumin 2.6 gm/dl (3.4-5.0) Assessment and Plan 42 year old female with no past medical history presents to ED with fever, RUQ, R flank pain, admitted for pyelonephritis 11/11 Patient is feeling much better. Denies fever overnight and has less back pain. PRN Advil for fever. Patient is breathing better today. -6L output on Lasix. Repeat CXR today to evaluated puim edema. Appears to have resolved with diuresis Negative hep panel. Continue to replete K 11/10 Patient reports this morning feeling short of breathe overnight. Patient had a 4 kg over the course of 1 day of recieving large quantities of IV fluids and medication (NAC and abx), totaling approx 4.5 L with a positive balance of 1.7L . She was reassessed this afternoon after sx persisted. ICU consulted and Dr. Little performed bedside USG which was demonstrated bilateral pleural effusions. Patient was given 40 IV Lasix. Due to persisting fever and concern for continued sepsis, switching from Rocephin to broad spectrum abx.. WBC and lactic acid were unremarkable. Pt is flu negative Will continue to follow LFTs. Fevers treated with Motrin. Sepsis secondary to pyelonephritis - IV abx day 2; switched to IV Linezolid 600 mg/piperacillin - Dc IVF - Zofran PRN nausea - Tramadol and morphine PRN pain - Toradol once - Repeat ab ct to address continued ab pain Pulmonary Edema -Dc fluids -40 of lasix once on 11/11 -Follow sats Tylenol overdose - Differing history regarding tylenol intake; patient reports taking 6 grams in one day. AST mildly elevated - Ordered Tylenol level--low - Liver enzymes improved - Will continue to trend LFTs - Dc'ed n-acetylcysteine - Hold Tylenol for now Hypophosphatemia/hypokalemia -Replenish VTE PPx - SCD History Pt reports considerable improvement in symptoms since yesterday - output approx 6L after furosemide with improved respiratory distress and edema, resolved R flank pain. Mild persistent nausea with one exacerbation following standing after breakfast. Defers further diuresis at this time. General Appearance: WD/WN, no apparent distress Respiratory: chest non-tender, no respiratory distress, decreased breath sounds (b/l bases), rales (improved) Cardiovascular: normal peripheral pulses, regular rate, rhythm, no murmur Gastrointestinal: normal bowel sounds, non tender (no CVA TTP), soft, no organomegaly Assessment/Plan 42 y/o female h/o pyelonephritis in presents w/ right sided pyelonephritis and sepsis Pyelonephritis - improved on broad spectrum. Repeat lab studies w/ addition of influenza, lipase, lactate, procal reassuring. LFT downtrending. Awaiting repeat cultures. Acute respiratory distress with pulmonary edema - bedside US from Dr. Little - Improved w/ diuresis. Repeat CXR to evaluate for ?underlying pulmonary disease Transaminitis - improving. Trend CMP. t/c GB evaluation based on culture results Acetaminophen overdose - on clarification, likely 2-3 grams --> 6 grams [employer] - poison control aware - stop NAC after present bag, trend CMP Hypophosphatemia - repleted, trend Hypokalemia - mild, monitor BMP, replete as necessary VTE PPX - SCDs
--- NOTE | 2017-11-11 11:29 | DIAGNOSTIC IMAGING REPORT ---
CHEST ONE VIEW PORTABLE CLINICAL HISTORY: follow-up congestion; s/p diuresis COMPARISON STUDY: 11/10/2017 FINDINGS: The cardiac and mediastinal contours remain stable. There are small bilateral pleural effusions right greater than left. There is improving aeration of the lung bases.[ There is no overt failure. IMPRESSION: 1. Persistent bilateral pleural effusions 2. Slight improvement in the aeration of both lung bases Electronically signed by: Ramon Carranza M.D. 11/11/2017 11:28 AM Dictated Date/Time: 11/11/2017 11:26 AM
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
--- NOTE | 2017-11-11 15:21 | Medical Student: [facility] ---
Med Student Progress Note Date of Service Nov 11, 2017. Subjective Pt evaluation today including: conversation w/ patient, physical exam, lab review Pain: Markedly decreased PO Intake: Adequate Voiding: no voiding problems This is a 42-year-old female with a remote hx of pyelonephritis in who is admitted for pyelonephritis, currently treated with linezolid and piperacillin/tazobactam. She reports feeling much better today with improved breathing, no subjective fevers, and decreased pain. She has been urinating a lot, and states she began to sweat after taking linezolid. She has one episode of nausea that was alleviated with Zofran. She feels that with diuresis she is better able to breathe and skin feels less "tight." She denies CP, chest tightness, chills, dysuria, calf pain/swelling. Objective Vital Signs Date Time Temp Pulse Resp B/P (MAP) Pulse Ox O2 Delivery O2 Flow Rate FiO2 11/11/17 11:52 37.0 85 16 113/76 (88) 96 11/11/17 08:00 94 Room Air 11/11/17 07:31 36.7 89 16 103/69 (80) 94 11/11/17 04:57 37.0 102 22 103/68 (80) 93 Room Air 11/11/17 04:00 Room Air 11/11/17 00:50 37.2 94 20 106/71 (83) 94 Room Air 11/11/17 00:00 Room Air 11/10/17 21:11 37.0 11/10/17 20:00 Room Air 11/10/17 18:55 36.7 93 20 127/79 (95) 98 11/10/17 16:42 36.7 89 18 117/75 (89) 95 Room Air 11/10/17 16:00 Room Air 11/10/17 15:07 37.0 101 18 114/70 (85) 94 Room Air Physical Exam General Appearance: WD/WN (sitting up in bed, eating breakfast, energy much improved today.), no apparent distress ENT: TMs normal (moist MM) Respiratory/Chest: lungs clear (crackles gone today), normal breath sounds, no respiratory distress Cardiovascular: regular rate, rhythm, no edema, no gallop, no murmur Abdomen: normal bowel sounds, non tender, soft, + pertinent finding (no CVA tenderness) Extremities: normal inspection, no pedal edema, no calf tenderness Laboratory Results Last 24 Hours Test 11/10/17 14:10 11/10/17 14:13 11/10/17 14:21 11/10/17 20:51 Influenza Type A (RT-PCR) Neg for Influ A Influenza Type A Antigen Neg for Influ A Influenza Type B Antigen Neg for Influ B Influenza Type B (RT-PCR) Neg for Influ B Urine Color YELLOW Urine Appearance CLEAR Urine pH 5.0 Urine Specific [place] 1.017 Urine Protein NEG Urine Glucose (UA) NEG Urine Ketones NEG Urine Occult Blood NEG Urine Nitrite NEG Urine Bilirubin NEG Urine Urobilinogen NEG Urine Leukocyte Esterase NEG White Blood Count 8.79 K/uL Red Blood Count 3.50 M/uL Hemoglobin 10.7 g/dL Hematocrit 31.2 % Mean Corpuscular Volume 89.1 fL Mean Corpuscular Hemoglobin 30.6 pg Mean Corpuscular Hemoglobin Concent 34.3 g/dl Platelet Count 218 K/uL Mean Platelet Volume 9.8 fL Neutrophils (%) (Auto) 77.5 % Lymphocytes (%) (Auto) 9.6 % Monocytes (%) (Auto) 11.9 % Eosinophils (%) (Auto) 0.5 % Basophils (%) (Auto) 0.3 % Neutrophils # (Auto) 6.81 K/uL Lymphocytes # (Auto) 0.84 K/uL Monocytes # (Auto) 1.05 K/uL Eosinophils # (Auto) 0.04 K/uL Basophils # (Auto) 0.03 K/uL RDW Standard Deviation 41.5 fL RDW Coefficient of Variation 12.8 % Immature Granulocyte % (Auto) 0.2 % Immature Granulocyte # (Auto) 0.02 K/uL Prothrombin Time 9.7 SECONDS Prothromb Time International Ratio 0.9 Sodium Level 138 mmol/L Potassium Level 3.5 mmol/L Chloride Level 109 mmol/L Carbon Dioxide Level 22 mmol/L Anion Gap 7.0 mmol/L Blood Urea Nitrogen 5 mg/dl Creatinine 0.68 mg/dl Est Creatinine Clear Calc Drug Dose 104.4 ml/min Estimated GFR () 123.3 Estimated GFR (Non- 106.4 BUN/Creatinine Ratio 7.3 Random Glucose 101 mg/dl Lactic Acid Level 1.1 mmol/L Calcium Level 8.0 mg/dl Phosphorus Level 0.7 mg/dl Magnesium Level 1.8 mg/dl Total Bilirubin 0.4 mg/dl Direct Bilirubin < 0.1 mg/dl Aspartate Amino Transf (AST/SGOT) 106 U/L Alanine Aminotransferase (ALT/SGPT) 131 U/L Alkaline Phosphatase 74 U/L Total Protein 6.6 gm/dl Albumin 2.6 gm/dl Lipase 194 U/L Procalcitonin 0.39 ng/ml Test 11/10/17 20:57 11/11/17 03:29 White Blood Count 7.13 K/uL 7.62 K/uL Red Blood Count 3.65 M/uL 3.29 M/uL Hemoglobin 11.5 g/dL 10.1 g/dL Hematocrit 33.0 % 29.3 % Mean Corpuscular Volume 90.4 fL 89.1 fL Mean Corpuscular Hemoglobin 31.5 pg 30.7 pg Mean Corpuscular Hemoglobin Concent 34.8 g/dl 34.5 g/dl Platelet Count 221 K/uL 211 K/uL Mean Platelet Volume 9.8 fL 9.8 fL Neutrophils (%) (Auto) 63.4 % 67.3 % Lymphocytes (%) (Auto) 22.7 % 15.0 % Monocytes (%) (Auto) 12.2 % 16.1 % Eosinophils (%) (Auto) 1.0 % 0.9 % Basophils (%) (Auto) 0.4 % 0.3 % Neutrophils # (Auto) 4.52 K/uL 5.13 K/uL Lymphocytes # (Auto) 1.62 K/uL 1.14 K/uL Monocytes # (Auto) 0.87 K/uL 1.23 K/uL Eosinophils # (Auto) 0.07 K/uL 0.07 K/uL Basophils # (Auto) 0.03 K/uL 0.02 K/uL RDW Standard Deviation 42.3 fL 40.6 fL RDW Coefficient of Variation 12.8 % 12.6 % Immature Granulocyte % (Auto) 0.3 % 0.4 % Immature Granulocyte # (Auto) 0.02 K/uL 0.03 K/uL Sodium Level 138 mmol/L 138 mmol/L Potassium Level 3.3 mmol/L 3.2 mmol/L Chloride Level 105 mmol/L 105 mmol/L Carbon Dioxide Level 27 mmol/L 27 mmol/L Anion Gap 7.0 mmol/L 6.0 mmol/L Blood Urea Nitrogen 4 mg/dl 4 mg/dl Creatinine 0.79 mg/dl 0.68 mg/dl Est Creatinine Clear Calc Drug Dose 89.9 ml/min 104.4 ml/min Estimated GFR () 105.5 123.3 Estimated GFR (Non- 91.0 106.4 BUN/Creatinine Ratio 5.2 6.0 Random Glucose 121 mg/dl 115 mg/dl Lactic Acid Level 1.9 mmol/L Calcium Level 8.1 mg/dl 7.7 mg/dl Phosphorus Level 2.9 mg/dl Total Bilirubin 0.4 mg/dl 0.6 mg/dl Direct Bilirubin < 0.1 mg/dl 0.1 mg/dl Aspartate Amino Transf (AST/SGOT) 81 U/L 58 U/L Alanine Aminotransferase (ALT/SGPT) 127 U/L 111 U/L Alkaline Phosphatase 73 U/L 67 U/L Total Protein 6.9 gm/dl 6.2 gm/dl Albumin 2.8 gm/dl 2.6 gm/dl Hepatitis B Surface Antigen NEG Hepatitis C Antibody NEG Prothrombin Time 9.7 SECONDS Prothromb Time International Ratio 0.9 Assessment and Plan Assessment and Plan: This is a 42-year-old female with a remote hx of pyelonephritis in who is admitted for pyelonephritis, currently treated with linezolid and piperacillin/tazobactam. PYELONEPHRITIS WITH WORSENING CLINICAL STATUS - After patient was de-escalated to ceftriaxone for +E. coli culture yesterday , she developed fever, pain, malaise, and SOB. At the same time, pt had received a lot of IVF, had a 10lb weight increase since admission, was SOB, and had skin "tightness" concerning for fluid overload. With these events co- occuring, it is difficult to pinpoint an explanation for her deteriorating status. - Work-up stable blood counts, normal UA, negative influenza, negative hep b/c. Chest ultrasound and XR showed pleural effusion. CTA showed pleural effusion and findings consistent with pyelonephritis without abscess. Pt has improved today with both diureses and broadening of abx coverage. Pt continues to have pain and concern with gallbladder. - Moving forward, we will consider HIDA scan if persistent RUQ pain. We will also consider echocardiogram if presumed co-infection does not pronounce itself. It is also possible that this was an isolated exacerbation of existing pyelonephritis. - Continue linezolid and pip/tazo while blood cultures pending. PAIN - Controlled currently with Motrin. - Continue to offer morphine for pain as needed. DVT PPX - Pt denies calf pain. - Continue heparin and ambulate as tolerated. ACETAMINOPHEN TOXICITY - NULL/RESOLVED. - Further history reveals 6g of acetaminophen had only been taken one day. Discussion with ICU physician shows that this history paired with relatively lower than expected LFTs do not indicated overdose. - N-acetylcysteine was provided. - Continue daily CMP to monitor LFTs. Continued [facility] stay due to: fever
[2017-11-12 03:18] VITALS: BP 99/66; PULSE 98; TEMP 37.2; O2SAT 92
[2017-11-12 05:53] LABS: BASO % 0.5 %; BASO ABS # 0.03 K/uL (0-0.2); EOS % 1.9 %; EOS ABS # 0.11 K/uL (0-0.5); HEMATOCRIT 28.3 % (37-47); HEMOGLOBIN 9.9 g/dL (12.0-16.0); IG# 0.01 K/uL (0.00-0.02); LYMPH % 28.7 %; LYMPH ABS # 1.65 K/uL (1.2-3.4); MEAN CELL VOLUME 90.1 fL (80-100); MEAN CORPUSCULAR HEMOGLOBIN 31.5 pg (25-34); MEAN PLATELET VOLUME 9.8 fL (7.4-10.4); MONO % 14.6 %; MONO ABS # 0.84 K/uL (0.11-0.59); NEUT % 54.1 %; PLATELET COUNT 256 K/uL (130-400); RED CELL DISTRIBUTION WIDTH CV 12.7 % (11.5-14.5); WHITE BLOOD COUNT 5.74 K/uL (4.8-10.8)
[2017-11-12 06:35] LABS: ALBUMIN 2.5 gm/dl (3.4-5.0); CALCIUM 8.1 mg/dl (8.5-10.1); CREATININE 0.81 mg/dl (0.60-1.20); POTASSIUM 3.7 mmol/L (3.5-5.1); TOTAL PROTEIN 6.1 gm/dl (6.4-8.2)
--- NOTE | 2017-11-12 07:33 | Family Medicine Progress Note ---
Progress Note Date of Service Nov 12, 2017. History Pt seen and examined at bedside with resolved right flank pain. Still complaining of mild lung discomfort following resolving pulmonary edema. Decreasing periprandial nausea. General Appearance: WD/WN, no apparent distress Respiratory: chest non-tender, no respiratory distress, decreased breath sounds (improved from previous) Cardiovascular: normal peripheral pulses, regular rate, rhythm, no murmur Gastrointestinal: normal bowel sounds, non tender (no CVA TTP), soft, no organomegaly Assessment/Plan 42 y/o female h/o pyelonephritis in presents w/ right sided pyelonephritis and sepsis Pyelonephritis - resolving - complete course of PO abx with follow up BMP and LFTs as outpatient. Acute respiratory distress with pulmonary edema - Resolving Transaminitis - improving. Repeat LFTs as above. Negative HIDA and US in hospital. Acetaminophen overdose - on clarification, likely 2-3 grams --> 6 grams [employer] - poison control aware - treated w/ NAC by protocol Hypophosphatemia and hypokalemia - repeat BMP
[2017-11-12 07:34] VITALS: BP 110/71; PULSE 84; TEMP 36.9; O2SAT 94
[2017-11-12] MEDS: PIPERACILL/TAZOBAC IV 4.5 GM in DEXTROSE 5% 100ML IV SCH (08:09)
[2017-11-12] MEDS: POTASSIUM CHLORIDE 20 MEQ TABCR PO SCH (08:40)
[2017-11-12] MEDS: PANTOprazole SOD 40 MG TAB PO SCH (08:40)
[2017-11-12] MEDS: LINEZOLID / D5W 600 MG in PREMIXED IN D5W 300 ML IV SCH (10:11)
[2017-11-12] MEDS: HEPARIN SOD 5000 UNIT/0.5 ML CARP SQ SCH (10:11)
--- NOTE | 2017-11-12 10:15 | DIAGNOSTIC IMAGING REPORT ---
NUCLEAR HEPATOBILIARY SCAN CLINICAL HISTORY: Right upper quadrant abdominal pain. COMPARISON STUDY: Abdominal CT dated 11/10/2017. TECHNIQUE: Dynamic images of the liver and anterior abdomen were obtained every 5 minutes for a total of 60 minutes following the IV administration of 5.2mCi of technetium 99m Choletec. FINDINGS: The hepatobiliary scan shows prompt and homogeneous hepatic uptake. There is visualized activity within the intra and extrahepatic biliary tree at 10 minutes, and within the gallbladder at 10 minutes. There is normal biliary to bowel transit, with small bowel visualized by 45 minutes. IMPRESSION: Unremarkable nuclear hepatobiliary scan. There is no scintigraphic evidence of cholecystitis. Electronically signed by: Moses Goodrich M.D. 11/12/2017 10:13 AM Dictated Date/Time: 11/12/2017 10:12 AM
[2017-11-12] MEDS: IBUPROFEN 200 MG TAB PO PRN (10:22)
[2017-11-12 10:51] LABS: HEPATITIS A IGM TC 51813E NON-REACTIVE (NON-REACTIVE); HEPATITIS B CORE IGM TC51854R NON-REACTIVE (NON-REACTIVE)
[2017-11-12 11:49] VITALS: BP 114/77; PULSE 86; TEMP 37; O2SAT 95
[2017-11-12] MEDS: ONDANSETRON INJ 2 MG/ML 2 ML VIAL IV PRN (12:32)
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
[2017-11-12] MEDS ORDERED: ONDA4TAB10 SL (14:47)
[2017-11-12] MEDS ORDERED: AMOX500T PO (14:47)
--- NOTE | 2017-11-12 15:01 | Discharge Instructions ---
Discharge Instructions Date of Service Nov 12, 2017. Admission Reason for Admission: Pyelonephritis Discharge Discharge Diagnosis / Problem: pyelonephritis Discharge Goals Goal(s): Improve function, Improve disease control Activity Recommendations Activity Limitations: per Instructions/Follow-up section . Instructions / Follow-Up Instructions / Follow-Up Ms. Hurtado, Jesus Alberto came to [facility] and were found to have pyelonephritis (kidney infection). We treated you with IV antibiotics, IVF and symptomatic treatments for fevers and nausea. Throughout your hospital course, you were found to have increased fevers and trouble breathing. We were concerned for severe sepsis and we decided to consult the superintendent [employer]. You were found to have fluid surrounding your lungs which explained your shortness of breathe. We ordered additional infectious test including viral hepatitis test to rule out secondary infections. These test, including blood cultures were found to be negative. The cause for the shortness of breathe was likely secondary to fluid overload from the antibiotics, IVF and IV antidote for suspected Tylenol toxicity. Fluid diuresis relieved the symptoms. After reviewing your home medications, I did notice that you are taking a variety of supplements. I would discontinue these medications in the interim as you recover. I encourage you to review these medications with your PCP, as they maybe the cause for the increase in your liver function test. In addition, we would advise you to follow up with your PCP in the next few days regarding your hospitalization and GI symptoms. We will include nance points of your stay in the discharge summary to your doctor. Plan; 1. Start 14 day course of Augmentin three times a day for 14 days. 2. Follow up with PCP this week 3. Hold supplements during course of recovery and review with PCP regarding the efficacy and safety of long-term use. It was a pleasure to be apart of your care. Get wellIsabella MD Current Hospital Diet Patient's current hospital diet: Regular Diet Discharge Diet Recommended Diet: Regular Diet Pending Studies Studies pending at discharge: no Medical Emergencies . Who to Call and When: Medical Emergencies: If at any time you feel your situation is an emergency, please call 911 immediately. . Non-Emergent Contact Non-Emergency issues call your: Primary Care Provider . . "Provider Documentation" section prepared by Jose Navarro. . VTE Core Measure Inpt VTE Proph given/why not?: SCD's
[2017-11-12 15:08] VITALS: BP 114/77; PULSE 86; TEMP 37; O2SAT 95
[2017-11-12 15:18] VITALS: BP 106/69; PULSE 89; TEMP 36.4; O2SAT 98
--- NOTE | 2017-11-12 21:45 | Discharge Summary ---
Discharge Summary Date of Service Nov 12, 2017. Discharge Summary Admission Date: Nov 08, 2017 at 22:59 Discharge Date: Nov 12, 2017 Discharge Disposition: Home Principal Diagnosis: Pyelonephritis Immunizations: Have You Had Influenza Vaccine: No History of Tetanus Vaccine?: No History of Pneumococcal: No History of Hepatitis B Vaccine: No Medication Reconciliation New Medications: Amoxicillin & Pot Clavulanate (Augmentin 500MG) 1 Tab Tab 500 MG PO Q8H for 14 Days, #42 TAB Ondasetron Odt (Zofran Odt) 4 Mg Tab 4 MG SL Q6H for Nausea for 7 Days, #28 TAB Discontinued Medications: Nutritional Supplements (Nutrament) 1 Liq Liq 1 DOSE PO BID Phentermine Hcl (Phentermine Hcl) 37.5 Mg Tab 37.5 MG PO DAILY [Adiprobiotic] () 1 DOSE PO DAILY [Cellvit] () 1 DOSE PO DAILY [Chrotrin] () 1 DOSE PO DAILY [Enzonent] () 1 DOSE PO DAILY [Lipotropic] () 1 DOSE PO DAILY [Phenamine] () 2 TAB PO QAM [Phenamine] () 1 TAB PO QPM Discharge Exam Review of Systems: Constitutional: No fever, No chills, No sweats Respiratory: No cough, No sputum Cardiovascular: No chest pain, No palpitations Abdomen: + pain, + nausea, No vomiting Genitourinary - Female: No dysuria, No hematuria Physical Exam: General Appearance: WD/WN, no apparent distress Respiratory/Chest: chest non-tender, lungs clear, normal breath sounds Cardiovascular: regular rate, rhythm, no edema, no murmur Abdomen / GI: normal bowel sounds, non tender, soft Neurologic/Psychiatric: alert, normal mood/affect, normal reflexes Skin: normal color, warm/dry, no rash Hospital Course 42 yo female came to [facility] with right flank pain, fevers and vomiting. Patient was found to have signs of Pyelonephritis on CT. Patient was empirically started on broad spectrum abx and blood and urine cultures were collected. Urine cultures grew Ecoli. Blood cultures showed no growth. Patient course was significant for pulmonary edema likely 2/2 fluid overload. Patient was subsequently diuresed effectively. Reason for overload likely due aggressive fluid management. In addition to the IVF, the patient received IV abx and multiple bags of acetylcysteine started in the ED for suspected Tylenol toxicity. Decision to provide antidote was made in the ED following elevated LFTs and history detailing ingestion of 6g for one day. The case for Tylenol toxicity was not compelling and LFT began to normalize. Despite fever resolving, the patient continued to complain of RUQ with food. Patient received a HIDA scan; unrevealing for gallbladder pathology. Patient was afebrile, with resolving LFT's at discharge. Discharged with 14 day course of Augmentin 500 TID. Patient advised to discontinue various weight loss supplements and to have her PCP review these medications as potential cause of transient increase in transaminases. In addition, patient advised to have repeat labs this week. Patient reports that the her abdominal pain with food is a chronic condition. Recommend outpt follow up and potential GI consultation in the outpatient. Patient was also followed by infectious disease. Sepsis secondary to pyelonephritis - IV abx day 2; switched to IV Linezolid 600 mg/piperacillin - Dc IVF - Zofran PRN nausea - Tramadol and morphine PRN pain - Toradol once - Repeat ab ct to address continued ab pain Pulmonary Edema -Dc fluids -40 of lasix once on 11/11 -Follow sats Tylenol overdose - Differing history regarding tylenol intake; patient reports taking 6 grams in one day. AST mildly elevated - Ordered Tylenol level--low - Liver enzymes improved - Will continue to trend LFTs - Dc'ed n-acetylcysteine - Hold Tylenol for now Hypophosphatemia/hypokalemia -Replenish VTE PPx - SCD Total Time Spent: Less than 30 minutes This includes examination of the patient, discharge planning, medication reconciliation, and communication with other providers. Discharge Instructions Please refer to the electronic Patient Visit Report (Discharge Instructions) for additional information. Additional Copies To Nixon Caceres M.D.
== END 2017-11-12 15:36 | disposition home or self-care (01) | DRG 872 ==
LOC: EDBD 18:04 → C.EDB 18:05 → C.MED 22:59 → ENRESERV 23:10
PROVIDERS: ADMIT Hospitalist; ATTEND Family Medicine
DX: A41.51 Sepsis due to Escherichia coli [E. coli] (principal); N12 Tubulo-interstitial nephritis, not specified as acute or chronic; Z87.891 Personal history of nicotine dependence; R74.0 Nonspecific elevation of levels of transaminase and lactic acid dehydrogenase [LDH]; Z88.2 Allergy status to sulfonamides; R06.03 Acute respiratory distress; E83.39 Other disorders of phosphorus metabolism; E87.6 Hypokalemia; T39.1X1A Poisoning by 4-Aminophenol derivatives, accidental (unintentional), initial encounter; Y92.009 Unspecified place in unspecified non-institutional (private) residence as the place of occurrence of the external cause

== ENCOUNTER → 2017-11-17 | Outpatient (CLI) | payer OTHER ==
[~2017-11-17] MED LIST: AMOX500T PO; ONDA4TAB10 SL
[2017-11-17 13:27] LABS: HEMOGLOBIN 13.6 g/dL (12.0-16.0); MEAN CELL VOLUME 92.2 fL (80-100); MEAN CORPUSCULAR HEMOGLOBIN 31.3 pg (25-34); MEAN PLATELET VOLUME 9.2 fL (7.4-10.4); PLATELET COUNT 448 K/uL (130-400); RED CELL DISTRIBUTION WIDTH CV 13.1 % (11.5-14.5); RED CELL DISTRIBUTION WIDTH SD 42.8 fL (36.4-46.3); WHITE BLOOD COUNT 10.19 K/uL (4.8-10.8)
[2017-11-17 14:00] LABS: ALBUMIN 3.8 gm/dl (3.4-5.0); ALT/SGPT 118 U/L (12-78); AST/SGOT 32 U/L (15-37); BLOOD UREA NITROGEN 17 mg/dl (7-18); CALCIUM 9.8 mg/dl (8.5-10.1); CARBON DIOXIDE 28 mmol/L (21-32); CREATININE 0.83 mg/dl (0.60-1.20); GLUCOSE 96 mg/dl (70-99); POTASSIUM 5.1 mmol/L (3.5-5.1); SODIUM 135 mmol/L (136-145)
[2017-11-17 14:03] LABS: ALKALINE PHOSPHATASE 80 U/L (45-117); PHOSPHORUS 3.9 mg/dl (2.5-4.9); TOTAL PROTEIN 8.8 gm/dl (6.4-8.2)
== END | disposition home or self-care (01) ==
LOC: C.LABBFT 10:49
PROVIDERS: ATTEND Physician Assistant Medical
DX: N12 Tubulo-interstitial nephritis, not specified as acute or chronic (principal)

== ENCOUNTER → 2017-11-30 | Outpatient (CLI) | payer OTHER ==
--- NOTE | 2017-11-30 14:51 | MAMMOGRAPHY REPORT ---
UNILATERAL RIGHT DIGITAL DIAGNOSTIC MAMMOGRAM TOMOSYNTHESIS AND TARGETED BILATERAL ULTRASOUND: 018 CLINICAL HISTORY: 42-year-old woman called back from screening mammography for a possible focal area of architectural distortion in the 12:00 far posterior right breast, and possible lobulated, partiall y circumscribed and obscured masses in each lateral and superior breast. TECHNIQUE: Spot compression right CC and MLO tomosynthesis images were obtained. COMPARISON: Comparison is made to exams dated: 10/27/2017 mammogram, 08/06/2016 mammogram, and 2014 mammogram - [facility]. BREAST COMPOSITION: The tissue of the right breast is heterogeneously dense, which may obscure small masses. FINDINGS: The spot compression views of the right breast demonstrate a persistent focal asymmetry in the 12:00 far posterior breast, with suggested architectural distortion, that is best appreciated on CC tomosynthesis slice 51/80. Further evaluation with ultrasound was performed. Targeted ultrasound was performed in each superior and lateral breast, with particular attention to t he right 12:00 breast in the area of subtle architectural distortion seen mammographically. Numerous anechoic cysts and anechoic cyst clusters are seen on ultrasound. The numerous cysts seen in each b reast correspond to the partially circumscribed and obscured masses seen throughout the superior and lateral breast. However, there are 2 findings that do not represent cysts. The first is in the righ t 10:00 axis, 11 cm from the nipple. There is a lymph node with a mildly thickened cortex. The michelet ex also appears heterogeneous, measuring up to 4.2 mm. This corresponds to an intramammary lymph nod e that has been present on prior mammograms and does not appear significantly changed but given the a bnormal appearance of the cortex, definitive characterization with an ultrasound-guided core biopsy i s recommended. Based subtle possible area of architectural distortion was identified in the 12:00 ri ght breast approximately 15 cm from the nipple that is thought to correspond to the mammographic dist ortion. This is difficult for accurate measurements on ultrasound but it measures proximally 9.5 x 7 .4 x 8.9 mm. Differential considerations include focal fibrocystic change, radial scar and carcinoma . Definitive characterization with ultrasound guided core biopsy is recommended. IMPRESSION: ACR BI-RADS CATEGORY 4: SUSPICIOUS, TARGETED ULTRASOUND ACR BI-RADS CATEGORY 4: SUSPICIO US 1. Ultrasound-guided core biopsy is recommended for a subtle area of ill-defined architectural disto rtion in the 12:00 right breast, 15 cm from the nipple, thought to correlate with the mammographic fo carlene asymmetry and mild suggested distortion. 2. Ultrasound guided core biopsy is recommended for an intramammary lymph node in the 10:00 right br east, 11 cm from the nipple with mildly thickened and heterogeneous appearing cortex. These results and recommendations were discussed with the patient at the time of the exam. She tenta tively scheduled the right breast biopsies prior to leaving our department. Approximately 10% of breast cancers are not detected with mammography. A negative mammographic report should not delay biopsy if a clinically suggestive mass is present. Jayshree Grove M.D. ay/:11/30/2017 10:17:16 Photographer Aerial: Carlee FREIRE(Joel)(Tricia), [facility] letter sent: Abnormal 4/5 BI-RADS Code: ACR BI-RADS Category 4: Suspicious Ultrasound BI-RADS: ACR BI-RADS Category 4: Suspici ous
== END ==
LOC: C.MAMM 08:51
PROVIDERS: ATTEND Internal Medicine
DX: N64.89 Other specified disorders of breast (principal)

== ENCOUNTER → 2017-12-07 | Outpatient (CLI) | payer OTHER ==
[2017-12-07 11:58] LABS: BASO ABS # 0.07 K/uL (0-0.2); EOS % 0.8 %; EOS ABS # 0.06 K/uL (0-0.5); HEMATOCRIT 35.8 % (37-47); HEMOGLOBIN 12.5 g/dL (12.0-16.0); IG# 0.01 K/uL (0.00-0.02); LYMPH % 32.5 %; LYMPH ABS # 2.35 K/uL (1.2-3.4); MEAN CELL VOLUME 90.2 fL (80-100); MEAN CORPUSCULAR HEMOGLOBIN 31.5 pg (25-34); MEAN CORPUSCULAR HGB CONC 34.9 g/dl (32-36); MEAN PLATELET VOLUME 10.2 fL (7.4-10.4); MONO % 8.7 %; MONO ABS # 0.63 K/uL (0.11-0.59); NEUT % 56.9 %; NEUT ABS # 4.11 K/uL (1.4-6.5); PLATELET COUNT 239 K/uL (130-400); RED CELL DISTRIBUTION WIDTH SD 42.3 fL (36.4-46.3); WHITE BLOOD COUNT 7.23 K/uL (4.8-10.8)
[2017-12-07 12:07] LABS: ALBUMIN 3.7 gm/dl (3.4-5.0); ALT/SGPT 21 U/L (12-78); AST/SGOT 14 U/L (15-37); BLOOD UREA NITROGEN 15 mg/dl (7-18); CALCIUM 9.2 mg/dl (8.5-10.1); CARBON DIOXIDE 28 mmol/L (21-32); CREATININE 0.71 mg/dl (0.60-1.20); GLUCOSE 92 mg/dl (70-99); POTASSIUM 3.9 mmol/L (3.5-5.1); SODIUM 136 mmol/L (136-145)
[2017-12-07 12:10] LABS: ALKALINE PHOSPHATASE 60 U/L (45-117); TOTAL PROTEIN 7.6 gm/dl (6.4-8.2)
== END | disposition home or self-care (01) ==
LOC: C.LAB 09:48
PROVIDERS: ATTEND Internal Medicine
DX: N12 Tubulo-interstitial nephritis, not specified as acute or chronic (principal)

== ENCOUNTER → 2017-12-16 | Outpatient (CLI) | payer OTHER | END | disposition home or self-care (01) | LOC: C.LAB 07:29 | PROVIDERS: ATTEND Registered Nurse | DX: R10.11 Right upper quadrant pain (principal) ==

== ENCOUNTER → 2017-12-25 | Outpatient (CLI) | payer OTHER ==
[~2017-12-25] MED LIST changes: -AMOX500T PO; -ONDA4TAB10 SL; +PANT40TA PO
--- NOTE | 2017-12-25 09:59 | Discharge Instructions ---
Discharge Instructions Procedure Procedure Date: Dec 25, 2017. Reason for visit: Right Lymph Node And Right Distortion. Discharge Discharge Date: Dec 25, 2017. Discharge Diagnosis: status post breast biopsy Instructions Activity Recommendations: Additional Limitations (see below) Return to School/Work: no limitations Recommended Home Diet: No Limitations Provider Instructions: ACTIVITY RECOMMENDATIONS: * No lifting, pushing, pulling or exercising the affected side for three days. RETURN TO SCHOOL/WORK: * You may return to work/school after the procedure, but do not perform any strenuous activities for 24 to 48 hours. MEDICATIONS: * Tylenol (two 325 mg) every four to six hours if needed for mild pain (if not allergic to Tylenol). DIET: * Resume previous diet. SPECIAL CARE INSTRUCTIONS: * Keep biopsy site dry for 24 hours. May shower after 24 hours, but do not soak (bathe) incision. * May remove Tegaderm (plastic patch) tomorrow AFTER showering. * Leave the steri-strips on for one week. Allow the steri-strips to fall off by themselves. If not off after one week, you may remove them. You may place a Bandaid crosswise over the strips, if desired. * Apply ice 10 minutes on and 10 minutes off as needed. * Wear a bra at bedtime to sleep more comfortably for 2-3 days. * Your referring physician should have the results after approximately 5 to 7 business days. * Call for unusual bleeding, fever, drainage, etc or if you have any questions call during normal business hours or after hours call Dr Son, . FOLLOW UP VISIT: Follow-up with Referring Physician as scheduled. Allergies Coded Allergies: Vancomycin (Verified Allergy, Intermediate, 11/09/17, 11/09/17) Oxytetracycline (Verified Allergy, Unknown, HAPPENED A CHILD-THINKS ITCHY RASH, 11/08/17) Polymyxin B (Verified Allergy, Unknown, HAPPENED A CHILD-THINKS ITCHY RASH, 11/08/17) Sulfa Antibiotics (Verified Allergy, Unknown, UNKNOWN, 11/08/17) Inga Peralta Recommendations: Call your doctor if: * Temperature above 101 degrees * Pain not relieved by pain medicine ordered * There is increased drainage or redness from any incision * You have any unanswered questions or concerns. Your Doctors Instructions noted above were prepared by provider Sofy Son. Patient Signature Section: Patient Instructions Signature Page Naomi Hurtado Patient (or Guardian) Signature/Date: I have read and understand the instructions given to me by my caregivers. Caregiver/RN/Doctor Signature/Date: The above-named patient and/or guardian has received patient instructions on this date. + Original Patient Signature Page (only) stays with chart. Please make copy for patient.
--- NOTE | 2017-12-25 13:55 | MAMMOGRAPHY REPORT ---
ULTRASOUND GUIDED BIOPSY RIGHT BREAST: 12/25/2017 CLINICAL HISTORY: Prominent intramammary lymph node in the right 10:00 breast. PATIENT CONSENT: The procedure, risks and benefits were discussed with the patient and informed writt en consent was obtained. A timeout was performed immediately prior to the procedure. PROCEDURE DESCRIPTION: With ultrasound guidance, aseptic technique, and lidocaine as the local anesth etic (1% lidocaine to anesthetize the skin and 1% lidocaine with epinephrine to anesthetize the deepe r tissues), the lymph node of concern in the right 10:00 breast was sampled 4 times with a 14-gauge A chieve biopsy needle. Immediately thereafter, with ultrasound guidance, aseptic technique, and lidoc chante as the local anesthetic, a metallic localizer clip was placed centrally in the lymph node. Dire ct pressure was applied to the site immediately post procedure and hemostasis was achieved. Postproc edure unilateral mammograms were performed to confirm clip placement; see separate dictation for deta ils. The patient tolerated the procedure without complication. She was given wound care instructions . The specimens were sent to pathology for analysis; the samples were sent fresh on a saline-soaked T elfa pad. COMPARISON: Comparison is made to exams dated: 12/25/2017 ultrasound biopsy, 11/30/2017 ultrasound, mammogram, 10/27/2017 mammogram, 08/06/2016 mammogram, and 08/03/2015 mammogram - [facility]. IMPRESSION: ULTRASOUND GUIDED BIOPSY Ultrasound-guided core needle biopsy of the prominent intramammary lymph node in the right 10:[address], with clip placement. The patient will receive pathology results from her referring provider. Sofy Son M.D. ah/:12/25/2017 10:25:11 Mate Ship: Chelle FREIRE(Joel)(Tricia), [facility]
--- NOTE | 2017-12-25 13:55 | MAMMOGRAPHY REPORT ---
ULTRASOUND GUIDED BIOPSY RIGHT BREAST: 12/25/2017 CLINICAL HISTORY: Ill-defined hypoechoic region in the right 12:00 breast, thought to correspond with possible mammographic architectural distortion. PATIENT CONSENT: The procedure, risks and benefits were discussed with the patient and informed writt en consent was obtained. A timeout was performed immediately prior to the procedure. PROCEDURE DESCRIPTION: With ultrasound guidance, aseptic technique, and lidocaine as the local anesth etic (1% lidocaine to anesthetize the skin and 1% lidocaine with epinephrine to anesthetize the deepe r tissues), the ill-defined hypoechoic region in the right 12:00 breast, 15 cmfn, was sampled 4 times with a 14-gauge achieve biopsy needle. Immediately thereafter, with ultrasound guidance, aseptic te chnique, and lidocaine as the local anesthetic, a metallic localizer clip was placed at the biopsy si te. Direct pressure was applied to the site immediately post procedure and hemostasis was achieved. Postprocedure unilateral mammograms were performed to confirm clip placement; see separate dictation for details. The patient tolerated the procedure without complication. She was given wound care in structions. The specimens were sent to pathology for analysis. COMPARISON: Comparison is made to exams dated: 11/30/2017 mammogram, 11/30/2017 ultrasound, 10/27/2017 mammogram, 08/06/2016 mammogram, and 08/03/2015 mammogram - [facility]. IMPRESSION: ULTRASOUND GUIDED BIOPSY Ultrasound-guided core needle biopsy of the ill-defined hypoechoic region in the right 12:00 breast, with clip placement. The patient will receive pathology results from her referring provider. Sofy Son M.D. /:12/25/2017 10:22:42 Home Improvement Advisor: Chelle GRIGGS)(Tricia), [facility]
--- NOTE | 2017-12-25 13:55 | MAMMOGRAPHY REPORT ---
UNILATERAL RIGHT DIGITAL DIAGNOSTIC MAMMOGRAM TOMOSYNTHESIS: 12/25/2017 CLINICAL HISTORY: Status post right breast biopsy 2. TECHNIQUE: Breast tomosynthesis in addition to standard 2D mammography was performed. Postprocedura l right CC and ML tomosynthesis images were obtained. COMPARISON: Comparison is made to exams dated: 12/25/2017 ultrasound biopsy, 11/30/2017 mammogram, 11/12 ultrasound, 10/27/2017 mammogram, 08/06/2016 mammogram, and 08/03/2015 mammogram - [facility]. BREAST COMPOSITION: The tissue of the right breast is heterogeneously dense, which may obscure small masses. FINDINGS: A new ribbon-shaped biopsy marker clip is seen at the site of the biopsied ill-defined hypo echoic region in the right 12:00 posterior breast. The biopsy clip is located at the site of the sally mographic asymmetry with possible associated architectural distortion, indicating good correlation be tween the sonographic and mammographic findings. A wing-shaped biopsy marker clip is seen within the biopsied lymph node in the right 10:00 breast. No significant postbiopsy hematoma is seen. IMPRESSION: POST PROCEDURE IMAGING FOR MARKER PLACEMENT New biopsy marker clips status post right breast biopsy 2. Pathology results are pending. Approximately 10% of breast cancers are not detected with mammography. A negative mammographic report should not delay biopsy if a clinically suggestive mass is present. Sofy Son M.D. /:12/25/2017 10:26:51 Sushi Chef: Chelle FREIRE(Joel)(Tricia), [facility] BI-RADS Code: Post Procedure Imaging For Marker Placement
== END | disposition home or self-care (01) ==
LOC: C.MAMM 09:04
PROVIDERS: ATTEND Internal Medicine
DX: N63.10 Unspecified lump in the right breast, unspecified quadrant (principal); R59.0 Localized enlarged lymph nodes

== ENCOUNTER → 2018-01-22 | Day surgery (SDC) | payer OTHER ==
[2018-01-07 15:17] VITALS: Ht 160 cm; Wt 72.7 kg
[~2018-01-22] VITALS: Ht 160 cm; Wt 72.7 kg
[~2018-01-22] MED LIST changes: +LIDOCAINE HCL 2% 2 ML VIAL (20MG/ML) ONE; +MIDAZOLAM HCL 1 MG/ML 2ML VIAL ONE; +PROPOFOL IV EMULSION 10 MG/ML 20 ML VIAL IV ONE; +SODIUM CHLORIDE 0.9% 500ML 500 ML IV ONE
[2018-01-22 11:52] VITALS: TEMP 36.7
--- NOTE | 2018-01-22 12:55 | Endo History and Physical ---
History & Physical Date of Service: Jan 22, 2018. Chief Complaint: RUQ abdominal pain Referring Physician: Dr. Caceres History of Present Illness 42 yo CF who presents for EGD secondary to RUQ abdominal pain. Past Surgical History Hx Cardiac Surgery: No Hx Internal Defibrillator: No Hx Pacemaker: No Hx Abdominal Surgery: Yes (EXP LAPRASCOPY) Hx of Implantable Prosthesis: No Hx Post-Op Nausea and Vomiting: No Hx Cancer Surgery: No Hx Thoracic Surgery: No Hx Orthopedic: No Hx Urinary Tract Surgery: No Family History None Social History Smoking Status: Never Smoker Hx Substance Use: No Hx Alcohol Use: Yes (SOCIALLY) Allergies Coded Allergies: Vancomycin (Verified Allergy, Intermediate, HIVES AND RASH, 01/22/18) Oxytetracycline (Verified Allergy, Unknown, MEDICATION NOT OINTMENTHAPPENED A CHILD-THINKS ITCHY/RASH, 01/22/18) Polymyxin B (Verified Allergy, Unknown, MEDICATION-NOT OINMENT-HAPPENED A CHILD-THINKS ITCHY RASH, 01/22/18) Sulfamethoxazole w/Trimethoprim (Verified Allergy, Unknown, RASH, 01/22/18) Current Medications Reported Home Medications Medications Dose Route/Sig Max Daily Dose Days Date Category Protonix (Pantoprazole Sodium) 40 Mg Tab 40 Mg PO QAM 01/07/18 Reported Vital Signs Weight (Kilograms): 72.73 Height (Feet): 5 Height (Inches): 3 Date Time Temp Pulse Resp B/P (MAP) Pulse Ox O2 Delivery O2 Flow Rate FiO2 01/22/18 11:52 36.7 83 16 118/72 (87) 98 Room Air Physical Exam General Appearance: WD/WN, no apparent distress Respiratory/Chest: Auscultation: breath sounds normal Cardiovascular: Heart Auscultation: RRR Abdomen: Bowel Sounds: normal Inspection & Palpation: soft, non-distended, no tenderness, guarding & rebound Assessment and Plan Assessment: 42 yo CF who presents for EGD secondary to RUQ abdominal pain. Plan: Proceed with colonoscopy.
--- NOTE | 2018-01-22 13:11 | Discharge Instructions ---
Endoscopy Patient Instructions Date / Procedure(s) Performed Jan 22, 2018. EGD Allergy Information Coded Allergies: Vancomycin (Verified Allergy, Intermediate, HIVES AND RASH, 01/22/18) Oxytetracycline (Verified Allergy, Unknown, MEDICATION NOT OINTMENTHAPPENED A CHILD-THINKS ITCHY/RASH, 01/22/18) Polymyxin B (Verified Allergy, Unknown, MEDICATION-NOT OINMENT-HAPPENED A CHILD-THINKS ITCHY RASH, 01/22/18) Sulfamethoxazole w/Trimethoprim (Verified Allergy, Unknown, RASH, 01/22/18) Discharge Date / Findings Jan 22, 2018. Gastric antrum biopsies Medication Instructions OK to resume all medications today as prescribed Reported Home Medications Medications Dose Route/Sig Max Daily Dose Days Date Category Protonix (Pantoprazole Sodium) 40 Mg Tab 40 Mg PO QAM 01/07/18 Reported Provider Instructions Activity Restrictions - No exercising or heavy lifting for 24 hours. - Do not drink alcohol the day of the procedure. - Do not drive a car or operate machinery until the day after the procedure. - Do not make any important decisions or sign important papers in 24 hours after the procedure. Following Day: - Return to full activity which may include returning to work/school. Diet Start your diet with liquids and light foods (jello, soup, juice, toast). Then eat your usual diet if not nauseated. Treatment For Common After Affects For mild abdominal pain, bloating, or excessive gas: - Rest - Eat lightly - Lie on right side Follow-Up Information Follow-up with Dr. Caceres as scheduled Anesthesia Information What You Should Know You have had a procedure that required some medicine to reduce anxiety and discomfort. This treatment is called moderate sedation. After receiving the treatment, you may be sleepy, but you will be able to breathe on your own. The effects of the treatment may last for several hours. Follow these instructions along with Activity/Diet recommendations noted above: * Do NOT do anything where dizziness or clumsiness would be dangerous. * Rest quietly at home today, then you can be up and about tomorrow. * Have a responsible person stay with you the rest of today. * You may have had an I.V. today. If so, you may take the dressing off later today. Recommendations Call your doctor if: * Trouble breathing * Continuous vomiting for more than 24 hours * Temperature above 101 degrees * Severe abdominal pain or bloating * Pain not relieved by pain medicine ordered * There is increased drainage or redness from any incision * A large amount of rectal bleeding greater than 2-3 tablespoons. (If you had a polyp/s removed or have hemorrhoids, a small amount of blood - from the rectum is to be expected.) * You have any unanswered questions or concerns. IN THE EVENT OF A SERIOUS EMERGENCY, GO TO THE NEAREST EMERGENCY ROOM Your discharge instructions were prepared by provider Andrés Camarena. Patient Instructions Signature Page Naomi Hurtado Patient (or Guardian) Signature/Date: I have read and understand the instructions given to me by my caregivers. Caregiver/RN/Doctor Signature/Date: The above-named patient and/or guardian has received patient instructions on this date. + Original Patient Signature Page (only) stays with chart. Please make copy for patient.
--- NOTE | 2018-01-22 13:16 | GI REPORT ---
Procedure Date: 01/22/2018 12:59 PM Procedure: Upper GI endoscopy Indications: Abdominal pain in the right upper quadrant Medicines: Monitored Anesthesia Care Complications: No immediate complications. Estimated Blood Loss: Estimated blood loss: none. Procedure: Pre-Anesthesia Assessment: - Prior to the procedure, a History and Physical was performed, and patient medications and allergies were reviewed. The patient's tolerance of previous anesthesia was also reviewed. The risks and benefits of the procedure and the sedation options and risks were discussed with the patient. All questions were answered, and informed consent was obtained. Prior Anticoagulants: The patient has taken no previous anticoagulant or antiplatelet agents. ASA Grade Assessment: II - A patient with mild systemic disease. After reviewing the risks and benefits, the patient was deemed in satisfactory condition to undergo the procedure. After obtaining informed consent, the endoscope was passed under direct vision. Throughout the procedure, the patient's blood pressure, pulse, and oxygen saturations were monitored continuously. The scope was introduced through the mouth, and advanced to the second part of duodenum. The upper GI endoscopy was accomplished without difficulty. The patient tolerated the procedure well. Findings: The examined esophagus was normal. The entire examined stomach was normal. Biopsies were taken with a cold forceps for Helicobacter pylori testing. The examined duodenum was normal. Impression: - Normal esophagus. - Normal stomach. Biopsied. - Normal examined duodenum. Recommendation: - Resume previous diet. - Continue present medications. - Await pathology results. - Return to primary care physician as previously scheduled. Andrés Camarena, 01/22/2018 1:16:06 PM This report has been signed electronically. Note Initiated On: 01/22/2018 12:59 PM I attest to the content of the Intraoperative Record and orders documented therein, exceptions below
[2018-01-22 13:44] VITALS: BP 140/89; PULSE 84; O2SAT 99
--- NOTE | 2018-01-22 13:48 | Anesthesiology Progress Note ---
Anesthesia Post Op Note Date & Time Jan 22, 2018 at 13:47 Vital Signs Pain Intensity: 0 Vital Signs Past 12 Hours Date Time Temp Pulse Resp B/P (MAP) Pulse Ox O2 Delivery O2 Flow Rate FiO2 01/22/18 13:44 84 20 140/89 (106) 99 Room Air 01/22/18 13:32 85 20 134/81 (98) 99 Room Air 01/22/18 13:15 87 18 137/86 (103) 97 Room Air 01/22/18 11:52 36.7 83 16 118/72 (87) 98 Room Air Notes Mental Status: alert / awake / arousable, participated in evaluation Pt Amnestic to Procedure: Yes Nausea / Vomiting: adequately controlled Pain: adequately controlled Airway Patency, RR, SpO2: stable & adequate BP & HR: stable & adequate Hydration State: stable & adequate Anesthetic Complications: no major complications apparent
== END | disposition home or self-care (01) ==
LOC: C.GI 11:16
PROVIDERS: ATTEND Internal Medicine
DX: R10.11 Right upper quadrant pain (principal); K21.9 Gastro-esophageal reflux disease without esophagitis; Z88.1 Allergy status to other antibiotic agents; Z88.2 Allergy status to sulfonamides

== ENCOUNTER → 2018-06-03 | Outpatient (CLI) | payer OTHER ==
[~2018-06-03] MED LIST changes: -LIDOCAINE HCL 2% 2 ML VIAL (20MG/ML) ONE; -MIDAZOLAM HCL 1 MG/ML 2ML VIAL ONE; -PROPOFOL IV EMULSION 10 MG/ML 20 ML VIAL IV ONE; -SODIUM CHLORIDE 0.9% 500ML 500 ML IV ONE
== END | disposition home or self-care (01) ==
LOC: C.LABBFT 14:23
PROVIDERS: ATTEND Physician Assistant Medical
DX: Z00.00 Encounter for general adult medical examination without abnormal findings (principal)